=== PATIENT | male | born 1955 | race Caucasian/White ===

== ENCOUNTER → 2017-03-02 | Outpatient (CLI) | payer BC ==
[~2017-03-02] MED LIST: ASPI81TA28 PO; ATOR-24 PO; CHOL1000 PO; CHOL2000 PO; INSPMPNVLG; INSPMPRG; LISI-461 PO
[2017-03-03 06:21] LABS: ESTIMATED AVERAGE GLUCOSE 206 mg/dl; HA1C FLAG Normal (Normal)
== END | disposition home or self-care (01) ==
LOC: C.LAB1850 14:14
PROVIDERS: ATTEND Internal Medicine Endocrinology, Diabetes & Metabolism
DX: E10.649 Type 1 diabetes mellitus with hypoglycemia without coma (principal)

== ENCOUNTER 2022-11-16 14:57 | Inpatient (IN) ==
[2022-11-16] MEDS ORDERED: ONDANSETRON INJ 2 MG/ML 2 ML VIAL IV STA (15:25)
[2022-11-16 16:10] LABS: Hemoglobin 14.5 g/dl (14.0-18.0); Mean Corpuscular Volume 94.2 fL (80.0-100.0); Mean Platelet Volume 10.7 fL (9.4-12.4); Platelet Count 258 K/uL (130-400); RDW Coefficient of Variation 12.5 % (11.5-14.5); RDW Standard Deviation 43.3 fL (36.4-46.3); Red Blood Count 4.67 M/uL (4.70-6.10); White Blood Count 25.14 K/ul (4.8-10.8)
[2022-11-16] MEDS ORDERED: SODIUM CHLORIDE 0.9% 1000ML 1,000 ML IV ONE ×2 (16:34→16:49)
[2022-11-16] MEDS ORDERED: FAMOTIDINE 20 MG in SYRINGE 3 ML IV ONE (16:34)
[2022-11-16] MEDS ORDERED: NovoLIN-R INSULIN PER UNIT CHARGE IV STA (16:50)
[2022-11-16 16:59] LABS: Albumin Globulin Ratio 1.9 (0.9-2); Albumin Level 4.8 gm/dl (3.4-5.0); BUN Creatinine Ratio 24.5 (10-20); Bilirubin,Total 2.3 mg/dl (0.2-1.0); Calcium 10.2 mg/dl (8.5-10.1); Creatinine Clr Calc Pharmacy 52.6 ml/min; Est GFR (African American) 56.8 ml/min; Globulin 2.5 gm/dl (2.5-4.0); Total Protein 7.3 gm/dl (6.0-8.3)
[2022-11-16] MEDS ORDERED: SODIUM CHLORIDE 0.9% 1000ML 1,000 ML IV SCH (17:00)
--- NOTE | 2022-11-16 17:01 | Emergency Department Note ---
Impression & Plan Diabetic ketoacidosis ED Provider Note CHIEF COMPLAINT: High blood sugar HISTORY OF PRESENT ILLNESS: This 67-year-old male patient with history of insulin-dependent diabetes tension, hypercholesterolemia presents to the emergency department feeling ill. He states he woke up early this morning feeling flushed and "not quite right" he then checked his blood sugar which was over 400. He states no matter what he has done for the rest of the day with his insulin boluses, his blood sugar remains high. He began to have vomiting and diarrhea. Patient has tried crackers, soda fluids, but seems to bring everything up. He last vomited in the waiting room. He denies any fevers, severe headache or vision changes. He states his chest is tight but he believes it is from vomiting. REVIEW OF SYSTEMS: A review of systems was performed with positives and pertinent negatives listed in the history of present illness. 10 systems were reviewed and are otherwise negative. ALLERGIES: see below MEDICATIONS: see below PMH: see below SOCIAL HISTORY: see below DDx: Viral infection, UTI, DKA, dehydration, metabolic abnormality, hypo/hyperglycemia, electrolyte disturbance, anemia, hypoxia, cardiac sources, intracerebral event, toxicologic, neurologic, as well as other pathologies. PHYSICAL EXAM: Vital signs reviewed. General: Critically ill-appearing 67-year-old male, in some discomfort. Smells of ketones HEENT: No scleral icterus, PERRLA, neck supple. Dry mucous membranes Cardiovascular: Tachycardic but regular, no extra sounds Pulmonary: Clear to auscultation bilaterally, increased respiratory rate Abdomen: Soft, nontender, nondistended, positive bowel sounds. Musculoskeletal: Atraumatic, no peripheral edema. Neurologic: Patient awake alert and oriented x 3, speech is clear Skin: Warm, dry, no rash EMERGENCY DEPARTMENT COURSE/MDM: This patient was evaluated and appeared to be in no significant distress. IV access was obtained and laboratory work was drawn. External medical records were reviewed. The patient was hydrated with 2 L of normal saline solution. He was placed at 150 milliliters per hour thereafter. Laboratory work reveals a markedly elevated glucose at 452 with a WBC of 25. Patient appears to be in DKA with an anion gap of 24 and CO2 of 14. An insulin drip was ordered. Seems etiology of the patient's DKA is related to his insulin pump, he states the needle was not in his skin when he woke up. Patient will require hospitalization for stabilization. Case was discussed with the [facility] hospitalist, Dr. Burrell. He has agreed to accept the patient for further management. Patient is aware of the plan and agrees MONITORING: An order for cardiac monitoring was placed and the patient is noted to be in a sinus tachycardia at 124 beats per minute. EKG: To my interpretation reveals a sinus tachycardia at 106 bpm. Evidence of a previous septal infarct. QTc is 456. Normal ST segments. No PVC, no PAC DISPOSITION: Admission I have personally spent 60 minutes of critical care time in the direct management of this patient. This was a life/limb threatening event. This 60 minutes is in excess of all separately billable procedures. Past Med/Surg History Medical History Diabetic peripheral neuropathy associated with type 1 diabetes mellitus Hypoglycemia unawareness in type 1 diabetes mellitus Loss of protective sensation of skin of foot Surgical History H/O foot surgery Family History Family/Other Colorectal cancer Diabetes Grandfather (Maternal) Myocardial infarction Grandfather (Paternal) Myocardial infarction Grandmother (Paternal) Ovarian cancer Brother Prostate cancer Diabetes Uncle Diabetes Denies family history of Breast cancer Social History Smoking Status: Former smoker Smoking End Date: Nov 1990, smoked 15 years off & on; Second Hand Exposure: No; Hx Alcohol Use: Yes Alcohol type: beer and hard liquor Alcohol Intake Frequency: 2-3 x/Week Hx Substance Use: No Preferred Language: Hebrew Communication Ability: Effective Health Policy Analyst Required: No Beliefs That Will Affect Care: None marital status: Current Living Situation: Spouse current occupational status: employed 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 Other Information That Helps Us Care for You: No Feels Safe at Home: Yes Safety Concerns: Feels Safe At This Time Childhood Exposure to Second-Hand Smoke: No Dental Care, Regularly: Yes Physical Activity Frequency: 3-4 Times per Week Seatbelt Use: always Sunscreen Use: No Assistive Devices: Glasses Allergies Allergies Allergy/AdvReac Type Severity Reaction Status Date / Time No Known Allergies Allergy Mild Verified 11/16/22 17:48 Home Meds Home Medications Medication Instructions Recorded Confirmed aspirin 81 mg tablet,delayed 81 mg PO HS 07/24/19 11/16/22 release (Adult Low Dose Aspirin) insulin syringe-needle U-100 0.5 #10 ea 07/24/19 08/05/22 mL 31 gauge x 5/16" (BD Insulin Syringe Ultra-Fine) atorvastatin 80 mg tablet 80 mg PO HS 11/16/22 11/16/22 cholecalciferol (vitamin D3) 50 100 mcg PO HS 11/16/22 11/16/22 mcg (2,000 unit) capsule (Vitamin D3) ezetimibe 10 mg tablet 10 mg PO HS 11/16/22 11/16/22 insulin lispro 100 unit/mL 0 unit continuous subcutaneous 11/16/22 11/16/22 subcutaneous solution (Humalog infusion CONTINOUS U-100 Insulin) lisinopril 40 mg tablet 40 mg PO HS 11/16/22 11/16/22 Previous Rx's Medication Instructions Recorded Contour Next Test Strips (blood #600 ea 11/19/21 sugar diagnostic) blood-glucose meter,continuous #1 ea 08/29/22 Dexcom G6 Sensor (blood-glucose #9 ea 11/07/22 sensor) Dexcom G6 Transmitter #1 ea 11/07/22 (blood-glucose transmitter) glucagon (human recombinant) 1 mg 1 mg IM .COMPLEX PRN hypoglycemia 11/09/22 solution for injection #1 ea Results & Data (ED) Vital Signs Vital Signs - 24 hr 11/16/22 14:58 11/16/22 17:58 Temperature 36.8 C Temperature Source Temporal Artery Scan Pulse Rate 118 H Pulse Rate [Right Finger] 124 H Respiratory Rate 20 18 Respiratory Effort / Characteristics Non-Labored Spontaneous Non-Labored Spontaneous Respiratory Depth Normal Normal Blood Pressure 131/63 Blood Pressure [Right Arm] 140/64 Blood Pressure Mean 85 Blood Pressure Mean [Right Arm] 89 Pulse Oximetry 98 98 Oxygen Delivery Method Room Air Room Air Sepsis Recent Fever Within 48 Hours No Sepsis New/Unexplained Change in Mental Status No Sepsis Action Taken by Nursing No Action Required Home Medications Current Medication List: was personally reviewed by me Laboratory Data Attestation: I reviewed the patient's lab results. 11/16/22 15:35 11/16/22 15:35 Lab Results 11/16/22 11/16/22 11/16/22 Range/Units 15:33 15:35 15:35 WBC 25.14 H (4.8-10.8) K/ul RBC 4.67 L (4.70-6.10) M/uL Hgb 14.5 (14.0-18.0) g/dl Hct 44.0 (42.0-52.0) % MCV 94.2 (80.0-100.0) fL MCH 31.0 (25.0-34.0) pg MCHC 33.0 (32.0-36.0) g/dL RDW Std Deviation 43.3 (36.4-46.3) fL RDW Coeff of Rik 12.5 (11.5-14.5) % Plt Count 258 (130-400) K/uL MPV 10.7 (9.4-12.4) fL Immature Gran % (Auto) 0.8 % Neut % (Auto) 67.4 % Lymph % (Auto) 26.5 % [place] % (Auto) 4.9 % Eos % (Auto) 0.0 % Baso % (Auto) 0.4 % Neut # (Auto) 16.95 H (1.40-6.50) K/uL Lymph # (Auto) 6.66 H (1.2-3.4) K/uL [place] # (Auto) 1.22 H (0.11-0.59) K/uL Eos # (Auto) 0.01 (0-0.50) K/uL Baso # (Auto) 0.11 (0-0.2) K/uL Immature Gran # (Auto) 0.19 (0.01-0.20) K/uL ABG pH (7.35-7.45) ABG pCO2 (35-46) mmHg ABG pO2 (80-95) mmHg ABG HCO3 (19-24) mmol/L ABG O2 Saturation (90-95) % ABG Base Excess (-9-1.8) mEq/L Abdi Test (Pos) Oxygen Given Sodium 135 L (136-145) mmol/L Potassium 6.0 H (3.5-5.1) mmol/L Chloride 97 L (98-107) mmol/L Carbon Dioxide 14 L (21-32) mmol/L Anion Gap 24 H (3-11) BUN 36 H (6-23) mg/dl Creatinine 1.47 H (0.6-1.4) mg/dl Est Cr Clr Drug Dosing 52.6 ml/min Est GFR ( Amer) 56.8 ml/min Est GFR (Non-Af Amer) 49.0 ml/min BUN/Creatinine Ratio 24.5 H (10-20) Glucose 542 H* (70-99(Fasting)) mg/dl POC Glucose 448 H* (70-99) mg/dl Calcium 10.2 H (8.5-10.1) mg/dl Total Bilirubin 2.3 H (0.2-1.0) mg/dl AST 23 (13-39) U/L ALT 29 (7-52) U/L Alkaline Phosphatase 51 (34-104) U/L Troponin I High Sens 9.2 (0-20) pg/ml Total Protein 7.3 (6.0-8.3) gm/dl Albumin 4.8 (3.4-5.0) gm/dl Globulin 2.5 (2.5-4.0) gm/dl Albumin/Globulin Ratio 1.9 (0.9-2) Urine Color Urine Appearance (Clear) Urine pH (4.5-7.5) Ur Specific [place] (1.000-1.030) Urine Protein (Negative) Urine Glucose (UA) (Negative) Urine Ketones (Negative) Urine Blood (Negative) Urine Nitrite (Negative) Urine Bilirubin (Negative) Urine Urobilinogen (Negative) Ur Leukocyte Esterase (Negative) Stl C. cayetanensis PCR Stool Rotavirus A PCR Stl Adenov F 40/41 PCR Stool Astrovirus (PCR) Stool Campylobacter PCR Stl C. diff Tox B Gene Stool Cryptosporidium PCR Stl E.coli Shiga Tox PCR Stool E coli O157 PCR Stl Enterotoxigenic E PCR Stool EPEC (PCR) Stool EAEC (PCR) Stl E. histolytica PCR Stool Giardia Lamblia PCR Stool Salmonella PCR Stool Sapovirus (PCR) Stl P. shigelloides PCR Stl Shigella/EIEC PCR St Y.enterocolitica PCR Stool Vibrio (PCR) Stl Vibrio cholerae PCR Stl Norovirus GI/GII PCR SARS-CoV-2 (PCR) (Negative) Influenza Type A (PCR) (Neg) Influenza Type B (PCR) (Neg) RSV (RT-PCR) (Neg) 11/16/22 11/16/22 11/16/22 Range/Units 16:40 16:56 17:17 WBC (4.8-10.8) K/ul RBC (4.70-6.10) M/uL Hgb (14.0-18.0) g/dl Hct (42.0-52.0) % MCV (80.0-100.0) fL MCH (25.0-34.0) pg MCHC (32.0-36.0) g/dL RDW Std Deviation (36.4-46.3) fL RDW Coeff of Rik (11.5-14.5) % Plt Count (130-400) K/uL MPV (9.4-12.4) fL Immature Gran % (Auto) % Neut % (Auto) % Lymph % (Auto) % [place] % (Auto) % Eos % (Auto) % Baso % (Auto) % Neut # (Auto) (1.40-6.50) K/uL Lymph # (Auto) (1.2-3.4) K/uL [place] # (Auto) (0.11-0.59) K/uL Eos # (Auto) (0-0.50) K/uL Baso # (Auto) (0-0.2) K/uL Immature Gran # (Auto) (0.01-0.20) K/uL ABG pH (7.35-7.45) ABG pCO2 (35-46) mmHg ABG pO2 (80-95) mmHg ABG HCO3 (19-24) mmol/L ABG O2 Saturation (90-95) % ABG Base Excess (-9-1.8) mEq/L Abdi Test (Pos) Oxygen Given Sodium (136-145) mmol/L Potassium (3.5-5.1) mmol/L Chloride (98-107) mmol/L Carbon Dioxide (21-32) mmol/L Anion Gap (3-11) BUN (6-23) mg/dl Creatinine (0.6-1.4) mg/dl Est Cr Clr Drug Dosing ml/min Est GFR ( Amer) ml/min Est GFR (Non-Af Amer) ml/min BUN/Creatinine Ratio (10-20) Glucose (70-99(Fasting)) mg/dl POC Glucose 457 H* (70-99) mg/dl Calcium (8.5-10.1) mg/dl Total Bilirubin (0.2-1.0) mg/dl AST (13-39) U/L ALT (7-52) U/L Alkaline Phosphatase (34-104) U/L Troponin I High Sens (0-20) pg/ml Total Protein (6.0-8.3) gm/dl Albumin (3.4-5.0) gm/dl Globulin (2.5-4.0) gm/dl Albumin/Globulin Ratio (0.9-2) Urine Color Yellow Urine Appearance Clear (Clear) Urine pH 5.0 (4.5-7.5) Ur Specific [place] 1.023 (1.000-1.030) Urine Protein Negative (Negative) Urine Glucose (UA) 3+ H (Negative) Urine Ketones 3+ H (Negative) Urine Blood Negative (Negative) Urine Nitrite Negative (Negative) Urine Bilirubin Negative (Negative) Urine Urobilinogen Negative (Negative) Ur Leukocyte Esterase Negative (Negative) Stl C. cayetanensis PCR Stool Rotavirus A PCR Stl Adenov F 40/41 PCR Stool Astrovirus (PCR) Stool Campylobacter PCR Stl C. diff Tox B Gene Stool Cryptosporidium PCR Stl E.coli Shiga Tox PCR Stool E coli O157 PCR Stl Enterotoxigenic E PCR Stool EPEC (PCR) Stool EAEC (PCR) Stl E. histolytica PCR Stool Giardia Lamblia PCR Stool Salmonella PCR Stool Sapovirus (PCR) Stl P. shigelloides PCR Stl Shigella/EIEC PCR St Y.enterocolitica PCR Stool Vibrio (PCR) Stl Vibrio cholerae PCR Stl Norovirus GI/GII PCR SARS-CoV-2 (PCR) NEGATIVE (Negative) Influenza Type A (PCR) Negative (Neg) Influenza Type B (PCR) Negative (Neg) RSV (RT-PCR) Negative (Neg) 11/16/22 11/16/22 11/16/22 Range/Units 17:57 17:57 18:12 WBC (4.8-10.8) K/ul RBC (4.70-6.10) M/uL Hgb (14.0-18.0) g/dl Hct (42.0-52.0) % MCV (80.0-100.0) fL MCH (25.0-34.0) pg MCHC (32.0-36.0) g/dL RDW Std Deviation (36.4-46.3) fL RDW Coeff of Rik (11.5-14.5) % Plt Count (130-400) K/uL MPV (9.4-12.4) fL Immature Gran % (Auto) % Neut % (Auto) % Lymph % (Auto) % [place] % (Auto) % Eos % (Auto) % Baso % (Auto) % Neut # (Auto) (1.40-6.50) K/uL Lymph # (Auto) (1.2-3.4) K/uL [place] # (Auto) (0.11-0.59) K/uL Eos # (Auto) (0-0.50) K/uL Baso # (Auto) (0-0.2) K/uL Immature Gran # (Auto) (0.01-0.20) K/uL ABG pH 7.14 L* (7.35-7.45) ABG pCO2 38 (35-46) mmHg ABG pO2 34 L (80-95) mmHg ABG HCO3 13 L (19-24) mmol/L ABG O2 Saturation < 60.0 L (90-95) % ABG Base Excess -15.3 L (-9-1.8) mEq/L Abdi Test Pos (Pos) Oxygen Given ROOM AIR Sodium (136-145) mmol/L Potassium (3.5-5.1) mmol/L Chloride (98-107) mmol/L Carbon Dioxide (21-32) mmol/L Anion Gap (3-11) BUN (6-23) mg/dl Creatinine (0.6-1.4) mg/dl Est Cr Clr Drug Dosing ml/min Est GFR ( Amer) ml/min Est GFR (Non-Af Amer) ml/min BUN/Creatinine Ratio (10-20) Glucose (70-99(Fasting)) mg/dl POC Glucose (70-99) mg/dl Calcium (8.5-10.1) mg/dl Total Bilirubin (0.2-1.0) mg/dl AST (13-39) U/L ALT (7-52) U/L Alkaline Phosphatase (34-104) U/L Troponin I High Sens (0-20) pg/ml Total Protein (6.0-8.3) gm/dl Albumin (3.4-5.0) gm/dl Globulin (2.5-4.0) gm/dl Albumin/Globulin Ratio (0.9-2) Urine Color Urine Appearance (Clear) Urine pH (4.5-7.5) Ur Specific [place] (1.000-1.030) Urine Protein (Negative) Urine Glucose (UA) (Negative) Urine Ketones (Negative) Urine Blood (Negative) Urine Nitrite (Negative) Urine Bilirubin (Negative) Urine Urobilinogen (Negative) Ur Leukocyte Esterase (Negative) Stl C. cayetanensis PCR Cancelled Stool Rotavirus A PCR Cancelled Stl Adenov F 40/41 PCR Cancelled Stool Astrovirus (PCR) Cancelled Stool Campylobacter PCR Cancelled Stl C. diff Tox B Gene Cancelled Stool Cryptosporidium PCR Cancelled Stl E.coli Shiga Tox PCR Cancelled Stool E coli O157 PCR Cancelled Stl Enterotoxigenic E PCR Cancelled Stool EPEC (PCR) Cancelled Stool EAEC (PCR) Cancelled Stl E. histolytica PCR Cancelled Stool Giardia Lamblia PCR Cancelled Stool Salmonella PCR Cancelled Stool Sapovirus (PCR) Cancelled Stl P. shigelloides PCR Cancelled Stl Shigella/EIEC PCR Cancelled St Y.enterocolitica PCR Cancelled Stool Vibrio (PCR) Cancelled Stl Vibrio cholerae PCR Cancelled Stl Norovirus GI/GII PCR Cancelled SARS-CoV-2 (PCR) (Negative) Influenza Type A (PCR) (Neg) Influenza Type B (PCR) (Neg) RSV (RT-PCR) (Neg) 11/16/22 Range/Units 18:46 WBC (4.8-10.8) K/ul RBC (4.70-6.10) M/uL Hgb (14.0-18.0) g/dl Hct (42.0-52.0) % MCV (80.0-100.0) fL MCH (25.0-34.0) pg MCHC (32.0-36.0) g/dL RDW Std Deviation (36.4-46.3) fL RDW Coeff of Rik (11.5-14.5) % Plt Count (130-400) K/uL MPV (9.4-12.4) fL Immature Gran % (Auto) % Neut % (Auto) % Lymph % (Auto) % [place] % (Auto) % Eos % (Auto) % Baso % (Auto) % Neut # (Auto) (1.40-6.50) K/uL Lymph # (Auto) (1.2-3.4) K/uL [place] # (Auto) (0.11-0.59) K/uL Eos # (Auto) (0-0.50) K/uL Baso # (Auto) (0-0.2) K/uL Immature Gran # (Auto) (0.01-0.20) K/uL ABG pH (7.35-7.45) ABG pCO2 (35-46) mmHg ABG pO2 (80-95) mmHg ABG HCO3 (19-24) mmol/L ABG O2 Saturation (90-95) % ABG Base Excess (-9-1.8) mEq/L Abdi Test (Pos) Oxygen Given Sodium (136-145) mmol/L Potassium (3.5-5.1) mmol/L Chloride (98-107) mmol/L Carbon Dioxide (21-32) mmol/L Anion Gap (3-11) BUN (6-23) mg/dl Creatinine (0.6-1.4) mg/dl Est Cr Clr Drug Dosing ml/min Est GFR ( Amer) ml/min Est GFR (Non-Af Amer) ml/min BUN/Creatinine Ratio (10-20) Glucose (70-99(Fasting)) mg/dl POC Glucose 371 H* (70-99) mg/dl Calcium (8.5-10.1) mg/dl Total Bilirubin (0.2-1.0) mg/dl AST (13-39) U/L ALT (7-52) U/L Alkaline Phosphatase (34-104) U/L Troponin I High Sens (0-20) pg/ml Total Protein (6.0-8.3) gm/dl Albumin (3.4-5.0) gm/dl Globulin (2.5-4.0) gm/dl Albumin/Globulin Ratio (0.9-2) Urine Color Urine Appearance (Clear) Urine pH (4.5-7.5) Ur Specific [place] (1.000-1.030) Urine Protein (Negative) Urine Glucose (UA) (Negative) Urine Ketones (Negative) Urine Blood (Negative) Urine Nitrite (Negative) Urine Bilirubin (Negative) Urine Urobilinogen (Negative) Ur Leukocyte Esterase (Negative) Stl C. cayetanensis PCR Stool Rotavirus A PCR Stl Adenov F 40/41 PCR Stool Astrovirus (PCR) Stool Campylobacter PCR Stl C. diff Tox B Gene Stool Cryptosporidium PCR Stl E.coli Shiga Tox PCR Stool E coli O157 PCR Stl Enterotoxigenic E PCR Stool EPEC (PCR) Stool EAEC (PCR) Stl E. histolytica PCR Stool Giardia Lamblia PCR Stool Salmonella PCR Stool Sapovirus (PCR) Stl P. shigelloides PCR Stl Shigella/EIEC PCR St Y.enterocolitica PCR Stool Vibrio (PCR) Stl Vibrio cholerae PCR Stl Norovirus GI/GII PCR SARS-CoV-2 (PCR) (Negative) Influenza Type A (PCR) (Neg) Influenza Type B (PCR) (Neg) RSV (RT-PCR) (Neg) Administered Medications Insulin Human Regular 250 (units/ Sodium Chloride) 250 mls @ 8.5 mls/hr IV .Q24H [facility]; Protocol Stop: 12/16/22 17:14 Last Titration: 11/16/22 23:00 Dose: 6.8 units/hr, 6.8 mls/hr Documented By: POLINA Co-signed By: [facility] Titration: 11/16/22 21:04 Dose: 8.5 units/hr, 8.5 mls/hr Documented By: MARK Co-signed By: [facility] Titration: 11/16/22 18:58 Dose: 8.5 units/hr, 8.5 mls/hr Documented By: KACI Co-signed By: [facility] Admin: 11/16/22 17:42 Dose: 8.5 units/hr, 8.5 mls/hr Documented By: KO Co-signed By: KACI Potassium Chloride/Sodium Chloride (1/2 Nss + 20meq Kcl 1000ml) 20 meq in 1,000 mls @ 150 mls/hr IV .Q6H40M [facility] Stop: 12/16/22 22:29 Last Admin: 11/16/22 22:55 Dose: 150 mls/hr Documented By: POLINA Discontinued Medications Famotidine 20 mg/ Syringe 5 mls @ 2.5 mls/min IV NOW ONE Stop: 11/16/22 16:35 Last Admin: 11/16/22 17:26 Dose: 2.5 mls/min Documented By: KO Sodium Chloride (Nss 1000ml) 1,000 mls @ 999 mls/hr IV .Q1H1M ONE Stop: 11/16/22 17:34 Last Infusion: 11/16/22 18:07 Dose: 0 mls/hr Documented By: Admin: 11/16/22 16:50 Dose: 999 mls/hr Documented By: KO Sodium Chloride (Nss 1000ml) 1,000 mls @ 999 mls/hr IV .Q1H1M ONE Stop: 11/16/22 17:49 Last Infusion: 11/16/22 20:12 Dose: 0 mls/hr Documented By: Admin: 11/16/22 17:32 Dose: 999 mls/hr Documented By: KO Sodium Chloride (Nss 1000ml) 1,000 mls @ 150 mls/hr IV .Q6H40M ARMINDA Stop: 12/16/22 16:59 Last Infusion: 11/16/22 22:50 Dose: 0 mls/hr Documented By: Admin: 11/16/22 19:39 Dose: 150 mls/hr Documented By: KO Insulin Aspart (Insulin Aspart Per Unit) 0 units SC ACHS ARMINDA Stop: 12/16/22 20:59 Last Admin: 11/16/22 22:10 Dose: Not Given Documented By: POLINA Insulin Human Regular (Novolin-R Insulin Per Unit Charge) 10 units IV NOW STA Stop: 11/16/22 16:51 Last Admin: 11/16/22 17:26 Dose: 10 units Documented By: KO Co-signed By: KACI Miscellaneous (Dka Goal Range 150-250 Mg/Dl) 1 each N/A ONE ONE Stop: 11/16/22 17:16 Last Admin: 11/16/22 17:53 Dose: Not Given Documented By: KO Ondansetron HCl (Ondansetron Inj 2 Mg/Ml 2 Ml Vial) 4 mg IV NOW STA Stop: 11/16/22 15:26 Last Admin: 11/16/22 15:41 Dose: 4 mg Documented By: AMANDAW Discharge Plan Visit Data Chief Complaint: Hyperglycemia Stated Complaint: REF BY DOC, VOMITING, HIGH BLOOD SUGAR ED Provider: Jessy Keenan Discharge Problem: Diabetic ketoacidosis Patient Disposition: Admitted As Inpatient Condition: Fair Discharge Instructions Interventions: ED Discharge Assessment Last Done: 11/16/22 22:07 : Diabetic ketoacidosis Qualifiers: Diabetes mellitus type: type 1 Diabetes mellitus complication detail: without coma Qualified Code(s): E10.10 - Type 1 diabetes mellitus with ketoacidosis without coma
[2022-11-16 17:06] LABS: Appearance Urine Clear (Clear); Bilirubin Urine Negative (Negative); Blood Urine Negative (Negative); Color Urine Yellow; Glucose Urine UA 3+ (Negative); Ketones Urine 3+ (Negative); Leukocyte Esterase Urine Negative (Negative); Nitrite Urine Negative (Negative); Protein Urine Negative (Negative); Specific Gravity Urine 1.023 (1.000-1.030); Urobilinogen Urine Negative (Negative)
[2022-11-16 17:10] LABS: Basophils # (auto) 0.11 K/uL (0-0.2); Basophils % (auto) 0.4 %; Eosinophils # (auto) 0.01 K/uL (0-0.50); Immature Granulocytes # (auto) 0.19 K/uL (0.01-0.20); Immature Granulocytes % (auto) 0.8 %; Lymphocytes # (auto) 6.66 K/uL (1.2-3.4); Lymphocytes % (auto) 26.5 %; Monocytes # (auto) 1.22 K/uL (0.11-0.59); Monocytes % (auto) 4.9 %; Neutrophils # (auto) 16.95 K/uL (1.40-6.50); Neutrophils % (auto) 67.4 %
[2022-11-16] MEDS ORDERED: GLUCAGON FOR INJ 1 MG VIAL SQ PRN (17:15)
[2022-11-16] MEDS ORDERED: DKA GOAL RANGE 150-250 mg/dl ONE ×2 (17:15→22:00)
[2022-11-16] MEDS ORDERED: INSULIN REGULAR 250 UNITS in SODIUM CHLORIDE 0.9% 247.5 ML IV SCH ×2 (17:15→22:00)
[2022-11-16] MEDS ORDERED: GLUCOSE 40% GEL 15 GM TUBE PO PRN (17:15)
[2022-11-16] MEDS ORDERED: GLUCOSE 10 TAB/TUBE PO PRN (17:15)
[2022-11-16] MEDS ORDERED: DEXTROSE 50% 50 ML SYRINGE IV PRN (17:15)
--- NOTE | 2022-11-16 17:44 | History & Physical Report ---
Date of Service November 16, 2022 Assessment & Plan (1) Diabetic ketoacidosis: Plan: Initial labs: Bicarb 14, anion gap 24, ABG pH 7.14 Suspected secondary to his insulin pump not initially working whenever he re- sites - consult athletic equipment manager for help with this DKA protocol IV fluids; normosol / Half NSS + 20 meq KCl / D5 half NSS + 20 meq KCl depending on K and BSG values DKA protocol IV insulin already started in the ER, aim 150-250. Consult pharmacy for help with glycemic control. q4h BMP, Mg, PO, venous pH Nausea and vomiting suspected due to DKA rather than cause of Famotidine for GI prophylaxis with nausea and vomiting (2) Diabetes type 1, controlled: Plan: HbA1c 9.6 in July. We will repeat with a.m. labs. Insulin as above (3) Chest pain: Plan: Suspect from nausea and vomiting Low suspicion of ACS Currently resolved Trend troponins but unless significant increase suspect demand-ischemia (4) Diarrhea: Plan: Stool PCR, C. diff pending. Can discontinue orders if diarrhea improves (5) Hypertension: Plan: Hold lisinopril pending serial blood pressure measurements Suspect this can be restarted tomorrow Plan VTE Prophylaxis - Lovenox 40mg SQ daily Diet - NPO pending anion gap closure Disposition - admit to PCU Admission and Anticipated Discharge Date Admission Date: November 16, 2022 History of Present Illness Chief Complaint: Nausea, vomiting, diarrhea Primary Care Provider: NO PCP Ilan Holden is a 67-year-old male with type 1 diabetes who presents to the ER with hyperglycemia in the 400s, chest pain, vomiting and generalized weakness. He reports never being admitted for diabetic ketoacidosis in 34 years and usually has more of a problem with lack of hypoglycemic awareness. He has had a new pump since March and reports having hyperglycemia whenever he changes sites. He was feeling mostly his normal self yesterday although a little bit more tired than usual. No infection signs or symptoms. During the night he was having trouble with high glucose levels and has been from experience that this may be due to a poor site of his insulin pump therefore changed this out to 2-3 times without improvement in his glucose. He does have injectable insulin although did not use on this occasion. He vomited green bile 10 times and had diarrhea 10 times following this. He denies any abdominal pain. He reports chest pain which he associates with the vomiting, no worse on palpation or exertion, not currently present. His usual basal rates of insulin is 1.05 units/h from 12 AM to 12 PM then 1.3 units/h from 12 PM to 12 AM (total 28.2 units). He reports usually requiring a total of 60 units insulin per day. In the ER he was noted to be in diabetic ketoacidosis with glucose level 542, bicarb 14, anion gap 24, ABG pH 7.14. He was given 2 L normal saline bolus, 10 units of IV insulin and started on an insulin drip. He was referred to medicine for admission ongoing management of diabetic ketoacidosis. Allergies Allergy/AdvReac Type Severity Reaction Status Date / Time No Known Allergies Allergy Mild Verified 11/16/22 17:48 Home Medications Medication Instructions Recorded Confirmed Type aspirin 81 mg tablet,delayed 81 mg PO HS 07/24/19 11/16/22 History release (Adult Low Dose Aspirin) insulin syringe-needle U-100 0.5 #10 ea 07/24/19 08/05/22 History mL 31 gauge x 5/16" (BD Insulin Syringe Ultra-Fine) Contour Next Test Strips (blood #600 ea 11/19/21 08/05/22 Rx sugar diagnostic) blood-glucose meter,continuous #1 ea 08/29/22 Rx Dexcom G6 Sensor (blood-glucose #9 ea 11/07/22 Rx sensor) Dexcom G6 Transmitter #1 ea 11/07/22 Rx (blood-glucose transmitter) glucagon (human recombinant) 1 mg 1 mg IM .COMPLEX PRN hypoglycemia 11/09/22 11/16/22 Rx solution for injection #1 ea atorvastatin 80 mg tablet 80 mg PO HS 11/16/22 11/16/22 History cholecalciferol (vitamin D3) 50 100 mcg PO HS 11/16/22 11/16/22 History mcg (2,000 unit) capsule (Vitamin D3) ezetimibe 10 mg tablet 10 mg PO HS 11/16/22 11/16/22 History insulin lispro 100 unit/mL 0 unit continuous subcutaneous 11/16/22 11/16/22 History subcutaneous solution (Humalog infusion CONTINOUS U-100 Insulin) lisinopril 40 mg tablet 40 mg PO HS 11/16/22 11/16/22 History Past Med/Surg History Medical History Diabetic peripheral neuropathy associated with type 1 diabetes mellitus Hypoglycemia unawareness in type 1 diabetes mellitus Loss of protective sensation of skin of foot Surgical History H/O foot surgery Family History Family/Other Colorectal cancer Diabetes Grandfather (Maternal) Myocardial infarction Grandfather (Paternal) Myocardial infarction Grandmother (Paternal) Ovarian cancer Brother Prostate cancer Diabetes Uncle Diabetes Denies family history of Breast cancer Social History Smoking Status: Former smoker Smoking End Date: Nov 1990, smoked 15 years off & on; Second Hand Exposure: No; Hx Alcohol Use: Yes Alcohol type: beer and hard liquor Alcohol Intake Frequency: 2-3 x/Week Hx Substance Use: No Preferred Language: Burmese Communication Ability: Effective Furniture Salesperson Required: No Beliefs That Will Affect Care: None marital status: Current Living Situation: Spouse current occupational status: employed 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 Other Information That Helps Us Care for You: No Feels Safe at Home: Yes Safety Concerns: Feels Safe At This Time Childhood Exposure to Second-Hand Smoke: No Dental Care, Regularly: Yes Physical Activity Frequency: 3-4 Times per Week Seatbelt Use: always Sunscreen Use: No Assistive Devices: Glasses Review of Systems Review of Systems: All systems reviewed & are unremarkable except as noted in HPI & below Physical Exam Constitutional: WD/WN, vitals as above Eyes: PERRL, conjunctivae normal, anicteric sclerae ENMT: Mouth: + dry oral mucous membranes Respiratory: normal respiratory effort, lungs clear to auscultation Cardiovascular: Rate/Rhythm: regular rhythm and + tachycardic Heart Sounds: no murmur Extremities: normal capillary refill; no calf tenderness and no pedal edema Gastrointestinal (Abdomen): normal bowel sounds, soft, nontender, no hepatosplenomegaly Musculoskeletal: no cyanosis or clubbing, extremities motor strength 5/5 Skin: no rashes, warm and dry Neurologic: moves all extremities and awake; not confused Psychiatric: A+Ox3, euthymic affect Results & Data Results & Data ([facility]) Vital Signs (Past 12 Hours) Vital Signs Temp Pulse Resp BP Pulse Ox O2 Del Method 11/16/22 14:58 36.8 C 118 H 20 131/63 98 Room Air Laboratory Results Abnormal lab results 11/16/22 11/16/22 11/16/22 Range/Units 15:33 15:35 15:35 WBC 25.14 H (4.8-10.8) K/ul RBC 4.67 L (4.70-6.10) M/uL Neut # (Auto) 16.95 H (1.40-6.50) K/uL Lymph # (Auto) 6.66 H (1.2-3.4) K/uL [place] # (Auto) 1.22 H (0.11-0.59) K/uL Sodium 135 L (136-145) mmol/L Potassium 6.0 H (3.5-5.1) mmol/L Chloride 97 L (98-107) mmol/L Carbon Dioxide 14 L (21-32) mmol/L Anion Gap 24 H (3-11) BUN 36 H (6-23) mg/dl Creatinine 1.47 H (0.6-1.4) mg/dl BUN/Creatinine Ratio 24.5 H (10-20) Glucose 542 H* (70-99(Fasting)) mg/dl POC Glucose 448 H* (70-99) mg/dl Calcium 10.2 H (8.5-10.1) mg/dl Total Bilirubin 2.3 H (0.2-1.0) mg/dl Urine Glucose (UA) (Negative) Urine Ketones (Negative) 11/16/22 11/16/22 Range/Units 16:40 17:17 WBC (4.8-10.8) K/ul RBC (4.70-6.10) M/uL Neut # (Auto) (1.40-6.50) K/uL Lymph # (Auto) (1.2-3.4) K/uL [place] # (Auto) (0.11-0.59) K/uL Sodium (136-145) mmol/L Potassium (3.5-5.1) mmol/L Chloride (98-107) mmol/L Carbon Dioxide (21-32) mmol/L Anion Gap (3-11) BUN (6-23) mg/dl Creatinine (0.6-1.4) mg/dl BUN/Creatinine Ratio (10-20) Glucose (70-99(Fasting)) mg/dl POC Glucose 457 H* (70-99) mg/dl Calcium (8.5-10.1) mg/dl Total Bilirubin (0.2-1.0) mg/dl Urine Glucose (UA) 3+ H (Negative) Urine Ketones 3+ H (Negative) Medications Administered ER medications given: Normal saline 1 L bolus x2 Ondansetron 4 mg IV Famotidine 20 mg IV Insulin 10 units IV ECG Indication: chest pain Rate (beats per minute): 106 Rhythm: sinus tachycardia Findings: no acute ischemic change Comparison ECG Date: from (August 14, 2017) Change: no significant change Code Status & VTE Plan Code Status Full VTE Prophylaxis Plan VTE Prophylaxis will be ordered: Yes Critical Care Time Critical Care Time: Yes Total Critical Care Time: 40 PG Care Time/CCT Total # of Minutes Spent Total Time Spent with Patient: Total time spent is greater than 50% in coordination of care (as documented) at patient's floor/unit and/or counseling patient: Critical Care Time: Yes Total Critical Care Time: 40 Coding Level of Care Code 69332 INT INP/OBS CARE 3/75MIN Diagnoses Diabetic ketoacidosis E11.10 Diabetes type 1, controlled E10.9 Chest pain R07.9 Diarrhea R19.7 Hypertension I10 Additional Codes Critical Care Time - Critical Care Time: Yes ([id number])
[2022-11-16 17:47] LABS: Influenza A virus by PCR Negative (Neg); Influenza B virus by PCR Negative (Neg); RSV by PCR Negative (Neg); SARS CoV2 RNA(COVID-19) Ceph NEGATIVE (Negative)
[2022-11-16 18:34] LABS: Base Excess ABG -15.3 mEq/L (-9-1.8); HCO3 ABG 13 mmol/L (19-24); Oxygen Saturation ABG < 60.0 % (90-95); PCO2 ABG 38 mmHg (35-46); PO2 ABG 34 mmHg (80-95)
[2022-11-16 18:44] LABS: Allen Test Pos (Pos)
[2022-11-16 19:27] LABS: pH ABG 7.14 (7.35-7.45)
[2022-11-16 20:25] LABS: Troponin I High Sensitivity 9.2 pg/ml (0-20)
[2022-11-16] MEDS ORDERED: INSULIN ASPART PER UNIT SC SCH (21:00)
[2022-11-16 21:28] LABS: BUN Creatinine Ratio 28.4 (10-20); Calcium 8.1 mg/dl (8.5-10.1); Creatinine Clr Calc Pharmacy 66.7 ml/min; Est GFR (African American) 75.6 ml/min; Est GFR (Non-African American) 65.3 ml/min; Potassium 4.3 mmol/L (3.5-5.1); Troponin I High Sensitivity 45.4 pg/ml (0-20)
[2022-11-16] MEDS ORDERED: PENDING 1/2NSS+20mEq KCL IVF SCH (22:00)
[2022-11-16] MEDS ORDERED: NORMOSOL-R 1,000 ML IV SCH (22:00)
[2022-11-16] MEDS ORDERED: STAT IV Infusion **Titration per Protocol STA (22:00)
[2022-11-16] MEDS ORDERED: PHARMACY GLYCEMIC MGMT CONSULT PRN (22:00)
[2022-11-16] MEDS ORDERED: SODIUM CHLOR 0.45% + 20MEQ KCL 20 MEQ/1,000 ML BAG IV SCH (22:30)
[2022-11-17] MEDS ORDERED: PENDING D5 1/2NS+20mEq KCL IVF SCH
[2022-11-17 00:23] LABS: BUN Creatinine Ratio 24.6 (10-20); Calcium 8.3 mg/dl (8.5-10.1); Creatinine Clr Calc Pharmacy 61.4 ml/min; Est GFR (African American) 68.4 ml/min; Potassium 4.1 mmol/L (3.5-5.1)
[2022-11-17 00:26] LABS: Magnesium 1.8 mg/dl (1.7-2.4); Phosphorus 1.2 mg/dl (2.5-4.9)
[2022-11-17] MEDS: ASPIRIN 81 MG ECTAB PO SCH ×2 (00:31→19:55)
[2022-11-17] MEDS: ATORVASTATIN 40 MG TAB PO SCH ×2 (00:31→19:56)
[2022-11-17] MEDS: EZETIMIBE 10 MG TABLET PO SCH ×2 (00:32→19:56)
[2022-11-17] MEDS: D5W AND 1/2NSS + 20MEQ KCL 20 MEQ/1,000 ML BAG IV SCH ×2 (01:39→08:52)
[2022-11-17 03:45] LABS: BUN Creatinine Ratio 24.8 (10-20); Calcium 8.1 mg/dl (8.5-10.1); Creatinine Clr Calc Pharmacy 66.1 ml/min; Est GFR (African American) 74.9 ml/min; Est GFR (Non-African American) 64.6 ml/min; Magnesium 1.8 mg/dl (1.7-2.4); Phosphorus 1.6 mg/dl (2.5-4.9); Potassium 4.1 mmol/L (3.5-5.1)
[2022-11-17 04:01] LABS: Troponin I High Sensitivity 947.6 pg/ml (0-20)
--- NOTE | 2022-11-17 07:26 | XRay Report ---
XR chest 1V portable CLINICAL HISTORY: DKA, ?pneumonia COMPARISON STUDY: No previous studies for comparison. FINDINGS: Lung volumes are mildly diminished. There is no pneumothorax or pleural effusion. Cardiac s ize is normal. Mediastinal contours are normal. There are mild opacities and reticulonodular intersti tial thickening, greater within the left lung and right lung base. IMPRESSION: Reticulonodular interstitial thickening with possible alveolar opacities. No lobar consol idation. Findings are suspicious for pneumonia. Radiographic follow-up to ensure resolution is recomm ended. ACT 112: Negative or not required by law. Electronically signed by: Marin Vail M.D. 11/17/2022 7:25 AM
[2022-11-17 07:55] LABS: BUN Creatinine Ratio 24.8 (10-20); Calcium 8.1 mg/dl (8.5-10.1); Creatinine Clr Calc Pharmacy 68.5 ml/min; Est GFR (African American) 78.1 ml/min; Est GFR (Non-African American) 67.4 ml/min; Magnesium 1.8 mg/dl (1.7-2.4); Phosphorus 2.5 mg/dl (2.5-4.9); Potassium 4.7 mmol/L (3.5-5.1)
--- NOTE | 2022-11-17 07:57 | Progress Note ---
Date of Service November 17, 2022 Assessment & Plan (1) Diabetic ketoacidosis: Diabetes mellitus complication detail: without coma Diabetes mellitus type: type 1 Qualified Code(s): E10.10 - Type 1 diabetes mellitus with ketoacidosis without coma (2) Diabetes type 1, controlled: (3) Chest pain: (4) Leukocytosis: Plan DKA: Secondary to insulin pump malfunctions when moved from one location to another. * Glucose under 250 consistently since last night (127 most recent) * Anion gap 9 most recently * Goal to transition from insulin drip to subcutaneous insulin in collaboration with pharmacy team * Start carb count diet * Get pump set up to ultimate goal of home regimen * Speak w/ hospice educator Chest pain: Concerning because CA can precipitate DKA, but this is likely due to dehydration secondary to DKA in addition to vomiting. His pain is not associated with exertion, he has no shortness of breath, and chest pain is not present as of 9am. * No acute ECG changes. Repeat EKG, obtain echo. * Troponin levels were 45.4 at 10PM, 947.6 at 3AM, and 1367 at 7AM, probably due to widespread ischemia, but will continue monitoring. * Cardiology advised holding heparin drip at this time. Leukocytosis: Concerning because infection commonly precipitates DKA, but this is likely demargination due to DKA, rather than the cause of DKA. * WBC of 25 upon presentation to ED. * Currently afebrile. * Continue to monitor for fever and normalization of WBC levels Diabetes type 1:Continued difficulty maintaining glycemic control since , despite patient education and multiple changes to medication and device regimen, follows with Dr. Riley * Last HgA1c was 9.6 in July * Needs a plan to prevent similar pump malfunctions in the future. * Pharmacy consulted for help with glycemic control) Admission and Anticipated Discharge Date Admission Date: November 16, 2022 Supervising Physician Co-Signing Physician Notes Medical Student Supervision Note: I was personally present during medical student patient encounter and independently interviewed and examined the patient and verified the blackwell history and physical, reviewed labs and image studies, discussed the case with Rebecca Last and agree with the findings and care plan. 67y/o M with h/o type 1 DM here with DKA likely from underlying uncontrolled DM No chest pain, shortness of breath, abdominal pain, nausea o/e - No distress Heart - regular; lungs - CTA DKA - Anion gap closed. Insulin drip transitioned to SQ insulin. Electrolytes stable Elevated troponin with chest pain - Echo normal Stress test ordered per cardio. follow Subjective This patient is an otherwise healthy 67-year-old male with insulin-dependent T1DM who presented to the [facility] ED yesterday 11/16/2022 feeling ill. In addition to vomiting, diarrhea, and chest pain, he reported a blood sugar of over 400. His insulin pump was replaced 8 months ago and he experiences hyperglycemia every time he switches sites, but he has never been hospitalized for DKA. In the emergency department, he had normal vital signs, mild tachycardia at 118, glucose at 542, pH at 7.14, potassium at 6.0, anion gap at 24, and CO2 at 14. The WBC count was 25. His EKG was normal. There were no signs of peaking T waves, wide ME intervals, or abnormal P waves. DKA protocol was initiated, he was rehydrated and given an insulin drip. He was admitted for continued monitoring. 11/17/2022: He is feeling much better this morning, and does not report chest pain, nausea, vomiting, abdominal pain, diarrhea, lethargy, dyspnea, or weakness. He slept 'as well as can be expected' last night and is glad his glucose is normalizing. His brother suddenly this past September due to a heart attack, and so, considering his recent chest pain, he is concerned he may have heart problems like his brother did. He endorses a mild headache that is unchanged since he came to the ED initially. He has an appetite and would like something to eat as soon as possible. Review of Systems Review of Systems: All systems reviewed & are unremarkable except as noted in Subjective Physical Exam Constitutional: healthy appearing, well groomed, cooperative and comfortable; no acute distress Eyes: normal visual archuleta by confrontation, + anicteric sclerae, PERRL, normal accommodation, EOM intact bilaterally and reactive pupils ENMT: external ear and nose normal, oropharynx normal Neck: normal visual inspection and trachea midline Thyroid: no thyromegaly Respiratory: normal respiratory effort, able to speak in complete sentences and symmetric chest movement; no respiratory distress, no labored breathing, does not use accessory muscles, not tachypneic and no audible wheezes Auscultation: lungs clear to auscultation bilaterally; no crackles, no rales, no rhonchi and no wheezes Cardiovascular: Rate/Rhythm: regular rate and regular rhythm Heart Sounds: normal S1 and normal S2; no gallop, no murmur and no cardiac rub Skin: no rashes, warm and dry Psychiatric: Orientation: alert, oriented x 3 and cooperative Eye Contact: good eye contact Speech: normal rate/rhythm/volume of speech Affect: euthymic affect Thought Process: linear/logical thought process Lymphatic: no cervical lymphadenopathy Results & Data ([facility]) Vital Signs (Past 12 Hours) Vital Signs Temp Pulse Pulse Resp BP Pulse Ox O2 Del Method 11/17/22 07:22 36.6 C 72 19 111/62 98 Room Air 11/16/22 23:00 Room Air 11/16/22 22:29 98 H 11/17/22 01:58 36.6 C 79 18 118/65 100 Room Air 11/16/22 22:00 36.7 C 102 H 20 122/64 98 Room Air 11/16/22 22:00 36.7 C 102 H 20 122/64 98 Room Air 11/16/22 21:36 100 H 18 119/51 L 98 Room Air Laboratory Results 11/17/22 11/17/22 11/17/22 11:52 11:52 11:43 Immature Gran % (Auto) Neut % (Auto) Lymph % (Auto) Dane % (Auto) Eos % (Auto) Baso % (Auto) Neut # (Auto) Lymph # (Auto) Dane # (Auto) Eos # (Auto) Baso # (Auto) Immature Gran # (Auto) Blood Smear Review ABG pH ABG pCO2 ABG pO2 ABG HCO3 ABG O2 Saturation ABG Base Excess Abdi Test VBG pH 7.34 L Oxygen Given Sodium 136 Potassium 4.9 Chloride 109 H Carbon Dioxide 20 L Anion Gap 7 BUN 28 H Creatinine 1.09 Est Cr Clr Drug Dosing 71.0 Est GFR ( Amer) 81.5 Est GFR (Non-Af Amer) 70.4 BUN/Creatinine Ratio 25.7 H Glucose 310 H* POC Glucose 231 H Calcium 8.0 L Phosphorus 2.2 L Magnesium 1.8 Total Bilirubin AST ALT Alkaline Phosphatase Troponin I High Sens Total Protein Albumin Globulin Albumin/Globulin Ratio Urine Color Urine Appearance Urine pH Ur Specific [place] Urine Protein Urine Glucose (UA) Urine Ketones Urine Blood Urine Nitrite Urine Bilirubin Urine Urobilinogen Ur Leukocyte Esterase Stl C. cayetanensis PCR Stool Rotavirus A PCR Stl Adenov F PCR Stool Astrovirus (PCR) Stool Campylobacter PCR Stl C. diff Tox B Gene Stool Cryptosporidium PCR Stl E.coli Shiga Tox PCR Stool E coli O157 PCR Stl Enterotoxigenic E PCR Stool EPEC (PCR) Stool EAEC (PCR) Stl E. histolytica PCR Stool Giardia Lamblia PCR Stool Salmonella PCR Stool Sapovirus (PCR) Stl P. shigelloides PCR Stl Shigella/EIEC PCR St Y.enterocolitica PCR Stool Vibrio (PCR) Stl Vibrio cholerae PCR Stl Norovirus GI/GII PCR SARS-CoV-2 (PCR) Influenza Type A (PCR) Influenza Type B (PCR) RSV (RT-PCR) 11/17/22 11/17/22 11/17/22 09:20 08:03 07:11 Immature Gran % (Auto) Neut % (Auto) Lymph % (Auto) Dane % (Auto) Eos % (Auto) Baso % (Auto) Neut # (Auto) Lymph # (Auto) Dane # (Auto) Eos # (Auto) Baso # (Auto) Immature Gran # (Auto) Blood Smear Review ABG pH ABG pCO2 ABG pO2 ABG HCO3 ABG O2 Saturation ABG Base Excess Abdi Test VBG pH Oxygen Given Sodium Potassium Chloride Carbon Dioxide Anion Gap BUN Creatinine Est Cr Clr Drug Dosing Est GFR ( Amer) Est GFR (Non-Af Amer) BUN/Creatinine Ratio Glucose POC Glucose 111 H 214 H Calcium Phosphorus Magnesium Total Bilirubin AST ALT Alkaline Phosphatase Troponin I High Sens 1367.9 H* D Total Protein Albumin Globulin Albumin/Globulin Ratio Urine Color Urine Appearance Urine pH Ur Specific [place] Urine Protein Urine Glucose (UA) Urine Ketones Urine Blood Urine Nitrite Urine Bilirubin Urine Urobilinogen Ur Leukocyte Esterase Stl C. cayetanensis PCR Stool Rotavirus A PCR Stl Adenov F PCR Stool Astrovirus (PCR) Stool Campylobacter PCR Stl C. diff Tox B Gene Stool Cryptosporidium PCR Stl E.coli Shiga Tox PCR Stool E coli O157 PCR Stl Enterotoxigenic E PCR Stool EPEC (PCR) Stool EAEC (PCR) Stl E. histolytica PCR Stool Giardia Lamblia PCR Stool Salmonella PCR Stool Sapovirus (PCR) Stl P. shigelloides PCR Stl Shigella/EIEC PCR St Y.enterocolitica PCR Stool Vibrio (PCR) Stl Vibrio cholerae PCR Stl Norovirus GI/GII PCR SARS-CoV-2 (PCR) Influenza Type A (PCR) Influenza Type B (PCR) RSV (RT-PCR) 11/17/22 11/17/22 11/17/22 07:11 07:11 06:54 Immature Gran % (Auto) Neut % (Auto) Lymph % (Auto) Dane % (Auto) Eos % (Auto) Baso % (Auto) Neut # (Auto) Lymph # (Auto) Dane # (Auto) Eos # (Auto) Baso # (Auto) Immature Gran # (Auto) Blood Smear Review ABG pH ABG pCO2 ABG pO2 ABG HCO3 ABG O2 Saturation ABG Base Excess Abdi Test VBG pH 7.38 Oxygen Given Sodium 142 Potassium 4.7 Chloride 113 H Carbon Dioxide 20 L Anion Gap 9 BUN 28 H Creatinine 1.13 Est Cr Clr Drug Dosing 68.5 Est GFR ( Amer) 78.1 Est GFR (Non-Af Amer) 67.4 BUN/Creatinine Ratio 24.8 H Glucose 127 H POC Glucose 102 H Calcium 8.1 L Phosphorus 2.5 Magnesium 1.8 Total Bilirubin AST ALT Alkaline Phosphatase Troponin I High Sens Total Protein Albumin Globulin Albumin/Globulin Ratio Urine Color Urine Appearance Urine pH Ur Specific [place] Urine Protein Urine Glucose (UA) Urine Ketones Urine Blood Urine Nitrite Urine Bilirubin Urine Urobilinogen Ur Leukocyte Esterase Stl C. cayetanensis PCR Stool Rotavirus A PCR Stl Adenov F 40/41 PCR Stool Astrovirus (PCR) Stool Campylobacter PCR Stl C. diff Tox B Gene Stool Cryptosporidium PCR Stl E.coli Shiga Tox PCR Stool E coli O157 PCR Stl Enterotoxigenic E PCR Stool EPEC (PCR) Stool EAEC (PCR) Stl E. histolytica PCR Stool Giardia Lamblia PCR Stool Salmonella PCR Stool Sapovirus (PCR) Stl P. shigelloides PCR Stl Shigella/EIEC PCR St Y.enterocolitica PCR Stool Vibrio (PCR) Stl Vibrio cholerae PCR Stl Norovirus GI/GII PCR SARS-CoV-2 (PCR) Influenza Type A (PCR) Influenza Type B (PCR) RSV (RT-PCR) 02/09/23 02/09/23 02/09/23 06:17 05:19 04:24 Immature Gran % (Auto) Neut % (Auto) Lymph % (Auto) Dane % (Auto) Eos % (Auto) Baso % (Auto) Neut # (Auto) Lymph # (Auto) Dane # (Auto) Eos # (Auto) Baso # (Auto) Immature Gran # (Auto) Blood Smear Review ABG pH ABG pCO2 ABG pO2 ABG HCO3 ABG O2 Saturation ABG Base Excess Abdi Test VBG pH Oxygen Given Sodium Potassium Chloride Carbon Dioxide Anion Gap BUN Creatinine Est Cr Clr Drug Dosing Est GFR ( Amer) Est GFR (Non-Af Amer) BUN/Creatinine Ratio Glucose POC Glucose 98 125 H 130 H Calcium Phosphorus Magnesium Total Bilirubin AST ALT Alkaline Phosphatase Troponin I High Sens Total Protein Albumin Globulin Albumin/Globulin Ratio Urine Color Urine Appearance Urine pH Ur Specific [place] Urine Protein Urine Glucose (UA) Urine Ketones Urine Blood Urine Nitrite Urine Bilirubin Urine Urobilinogen Ur Leukocyte Esterase Stl C. cayetanensis PCR Stool Rotavirus A PCR Stl Adenov F 40/41 PCR Stool Astrovirus (PCR) Stool Campylobacter PCR Stl C. diff Tox B Gene Stool Cryptosporidium PCR Stl E.coli Shiga Tox PCR Stool E coli O157 PCR Stl Enterotoxigenic E PCR Stool EPEC (PCR) Stool EAEC (PCR) Stl E. histolytica PCR Stool Giardia Lamblia PCR Stool Salmonella PCR Stool Sapovirus (PCR) Stl P. shigelloides PCR Stl Shigella/EIEC PCR St Y.enterocolitica PCR Stool Vibrio (PCR) Stl Vibrio cholerae PCR Stl Norovirus GI/GII PCR SARS-CoV-2 (PCR) Influenza Type A (PCR) Influenza Type B (PCR) RSV (RT-PCR) 11/17/22 11/17/22 11/17/22 03:12 03:12 03:10 Immature Gran % (Auto) Neut % (Auto) Lymph % (Auto) Dane % (Auto) Eos % (Auto) Baso % (Auto) Neut # (Auto) Lymph # (Auto) Dane # (Auto) Eos # (Auto) Baso # (Auto) Immature Gran # (Auto) Blood Smear Review ABG pH ABG pCO2 ABG pO2 ABG HCO3 ABG O2 Saturation ABG Base Excess Abdi Test VBG pH 7.37 Oxygen Given Sodium 138 Potassium 4.1 Chloride 111 H Carbon Dioxide 22 Anion Gap 5 BUN 29 H Creatinine 1.17 Est Cr Clr Drug Dosing 66.1 Est GFR ( Amer) 74.9 Est GFR (Non-Af Amer) 64.6 BUN/Creatinine Ratio 24.8 H Glucose 129 H POC Glucose 120 H Calcium 8.1 L Phosphorus 1.6 L Magnesium 1.8 Total Bilirubin AST ALT Alkaline Phosphatase Troponin I High Sens 947.6 H* D Total Protein Albumin Globulin Albumin/Globulin Ratio Urine Color Urine Appearance Urine pH Ur Specific [place] Urine Protein Urine Glucose (UA) Urine Ketones Urine Blood Urine Nitrite Urine Bilirubin Urine Urobilinogen Ur Leukocyte Esterase Stl C. cayetanensis PCR Stool Rotavirus A PCR Stl Adenov F 40/41 PCR Stool Astrovirus (PCR) Stool Campylobacter PCR Stl C. diff Tox B Gene Stool Cryptosporidium PCR Stl E.coli Shiga Tox PCR Stool E coli O157 PCR Stl Enterotoxigenic E PCR Stool EPEC (PCR) Stool EAEC (PCR) Stl E. histolytica PCR Stool Giardia Lamblia PCR Stool Salmonella PCR Stool Sapovirus (PCR) Stl P. shigelloides PCR Stl Shigella/EIEC PCR St Y.enterocolitica PCR Stool Vibrio (PCR) Stl Vibrio cholerae PCR Stl Norovirus GI/GII PCR SARS-CoV-2 (PCR) Influenza Type A (PCR) Influenza Type B (PCR) RSV (RT-PCR) 11/17/22 11/17/22 11/17/22 02:17 01:38 00:00 Immature Gran % (Auto) Neut % (Auto) Lymph % (Auto) Dane % (Auto) Eos % (Auto) Baso % (Auto) Neut # (Auto) Lymph # (Auto) Dane # (Auto) Eos # (Auto) Baso # (Auto) Immature Gran # (Auto) Blood Smear Review ABG pH ABG pCO2 ABG pO2 ABG HCO3 ABG O2 Saturation ABG Base Excess Abdi Test VBG pH Oxygen Given Sodium Potassium Chloride Carbon Dioxide Anion Gap BUN Creatinine Est Cr Clr Drug Dosing Est GFR ( Amer) Est GFR (Non-Af Amer) BUN/Creatinine Ratio Glucose POC Glucose 125 H 151 H 189 H Calcium Phosphorus Magnesium Total Bilirubin AST ALT Alkaline Phosphatase Troponin I High Sens Total Protein Albumin Globulin Albumin/Globulin Ratio Urine Color Urine Appearance Urine pH Ur Specific [place] Urine Protein Urine Glucose (UA) Urine Ketones Urine Blood Urine Nitrite Urine Bilirubin Urine Urobilinogen Ur Leukocyte Esterase Stl C. cayetanensis PCR Stool Rotavirus A PCR Stl Adenov F PCR Stool Astrovirus (PCR) Stool Campylobacter PCR Stl C. diff Tox B Gene Stool Cryptosporidium PCR Stl E.coli Shiga Tox PCR Stool E coli O157 PCR Stl Enterotoxigenic E PCR Stool EPEC (PCR) Stool EAEC (PCR) Stl E. histolytica PCR Stool Giardia Lamblia PCR Stool Salmonella PCR Stool Sapovirus (PCR) Stl P. shigelloides PCR Stl Shigella/EIEC PCR St Y.enterocolitica PCR Stool Vibrio (PCR) Stl Vibrio cholerae PCR Stl Norovirus GI/GII PCR SARS-CoV-2 (PCR) Influenza Type A (PCR) Influenza Type B (PCR) RSV (RT-PCR) 11/16/22 11/16/22 11/16/22 23:44 23:44 23:02 Immature Gran % (Auto) Neut % (Auto) Lymph % (Auto) Dane % (Auto) Eos % (Auto) Baso % (Auto) Neut # (Auto) Lymph # (Auto) Dane # (Auto) Eos # (Auto) Baso # (Auto) Immature Gran # (Auto) Blood Smear Review ABG pH ABG pCO2 ABG pO2 ABG HCO3 ABG O2 Saturation ABG Base Excess Abdi Test VBG pH 7.38 Oxygen Given Sodium 139 Potassium 4.1 Chloride 112 H Carbon Dioxide 22 Anion Gap 5 BUN 31 H Creatinine 1.26 Est Cr Clr Drug Dosing 61.4 Est GFR ( Amer) 68.4 Est GFR (Non-Af Amer) 59.0 BUN/Creatinine Ratio 24.6 H Glucose 197 H POC Glucose 197 H Calcium 8.3 L Phosphorus 1.2 L* Magnesium 1.8 Total Bilirubin AST ALT Alkaline Phosphatase Troponin I High Sens Total Protein Albumin Globulin Albumin/Globulin Ratio Urine Color Urine Appearance Urine pH Ur Specific [place] Urine Protein Urine Glucose (UA) Urine Ketones Urine Blood Urine Nitrite Urine Bilirubin Urine Urobilinogen Ur Leukocyte Esterase Stl C. cayetanensis PCR Stool Rotavirus A PCR Stl Adenov F PCR Stool Astrovirus (PCR) Stool Campylobacter PCR Stl C. diff Tox B Gene Stool Cryptosporidium PCR Stl E.coli Shiga Tox PCR Stool E coli O157 PCR Stl Enterotoxigenic E PCR Stool EPEC (PCR) Stool EAEC (PCR) Stl E. histolytica PCR Stool Giardia Lamblia PCR Stool Salmonella PCR Stool Sapovirus (PCR) Stl P. shigelloides PCR Stl Shigella/EIEC PCR St Y.enterocolitica PCR Stool Vibrio (PCR) Stl Vibrio cholerae PCR Stl Norovirus GI/GII PCR SARS-CoV-2 (PCR) Influenza Type A (PCR) Influenza Type B (PCR) RSV (RT-PCR) 11/16/22 11/16/22 11/16/22 21:57 21:02 20:48 Immature Gran % (Auto) Neut % (Auto) Lymph % (Auto) Dane % (Auto) Eos % (Auto) Baso % (Auto) Neut # (Auto) Lymph # (Auto) Dane # (Auto) Eos # (Auto) Baso # (Auto) Immature Gran # (Auto) Blood Smear Review ABG pH ABG pCO2 ABG pO2 ABG HCO3 ABG O2 Saturation ABG Base Excess Abdi Test VBG pH 7.37 Oxygen Given Sodium Potassium Chloride Carbon Dioxide Anion Gap BUN Creatinine Est Cr Clr Drug Dosing Est GFR ( Amer) Est GFR (Non-Af Amer) BUN/Creatinine Ratio Glucose POC Glucose 259 H 261 H Calcium Phosphorus Magnesium Total Bilirubin AST ALT Alkaline Phosphatase Troponin I High Sens Total Protein Albumin Globulin Albumin/Globulin Ratio Urine Color Urine Appearance Urine pH Ur Specific [place] Urine Protein Urine Glucose (UA) Urine Ketones Urine Blood Urine Nitrite Urine Bilirubin Urine Urobilinogen Ur Leukocyte Esterase Stl C. cayetanensis PCR Stool Rotavirus A PCR Stl Adenov F 40/41 PCR Stool Astrovirus (PCR) Stool Campylobacter PCR Stl C. diff Tox B Gene Stool Cryptosporidium PCR Stl E.coli Shiga Tox PCR Stool E coli O157 PCR Stl Enterotoxigenic E PCR Stool EPEC (PCR) Stool EAEC (PCR) Stl E. histolytica PCR Stool Giardia Lamblia PCR Stool Salmonella PCR Stool Sapovirus (PCR) Stl P. shigelloides PCR Stl Shigella/EIEC PCR St Y.enterocolitica PCR Stool Vibrio (PCR) Stl Vibrio cholerae PCR Stl Norovirus GI/GII PCR SARS-CoV-2 (PCR) Influenza Type A (PCR) Influenza Type B (PCR) RSV (RT-PCR) 11/16/22 11/16/22 11/16/22 20:48 20:01 18:46 Immature Gran % (Auto) Neut % (Auto) Lymph % (Auto) Dane % (Auto) Eos % (Auto) Baso % (Auto) Neut # (Auto) Lymph # (Auto) Dane # (Auto) Eos # (Auto) Baso # (Auto) Immature Gran # (Auto) Blood Smear Review ABG pH ABG pCO2 ABG pO2 ABG HCO3 ABG O2 Saturation ABG Base Excess Abdi Test VBG pH Oxygen Given Sodium 141 Potassium 4.3 D Chloride 113 H Carbon Dioxide 17 L Anion Gap 11 BUN 33 H Creatinine 1.16 D Est Cr Clr Drug Dosing 66.7 Est GFR ( Amer) 75.6 Est GFR (Non-Af Amer) 65.3 BUN/Creatinine Ratio 28.4 H Glucose 296 H POC Glucose 315 H* 371 H* Calcium 8.1 L D Phosphorus Magnesium Total Bilirubin AST ALT Alkaline Phosphatase Troponin I High Sens 45.4 H D Total Protein Albumin Globulin Albumin/Globulin Ratio Urine Color Urine Appearance Urine pH Ur Specific [place] Urine Protein Urine Glucose (UA) Urine Ketones Urine Blood Urine Nitrite Urine Bilirubin Urine Urobilinogen Ur Leukocyte Esterase Stl C. cayetanensis PCR Stool Rotavirus A PCR Stl Adenov F 40/41 PCR Stool Astrovirus (PCR) Stool Campylobacter PCR Stl C. diff Tox B Gene Stool Cryptosporidium PCR Stl E.coli Shiga Tox PCR Stool E coli O157 PCR Stl Enterotoxigenic E PCR Stool EPEC (PCR) Stool EAEC (PCR) Stl E. histolytica PCR Stool Giardia Lamblia PCR Stool Salmonella PCR Stool Sapovirus (PCR) Stl P. shigelloides PCR Stl Shigella/EIEC PCR St Y.enterocolitica PCR Stool Vibrio (PCR) Stl Vibrio cholerae PCR Stl Norovirus GI/GII PCR SARS-CoV-2 (PCR) Influenza Type A (PCR) Influenza Type B (PCR) RSV (RT-PCR) 11/16/22 11/16/22 11/16/22 18:12 17:57 17:57 Immature Gran % (Auto) Neut % (Auto) Lymph % (Auto) Dane % (Auto) Eos % (Auto) Baso % (Auto) Neut # (Auto) Lymph # (Auto) Dane # (Auto) Eos # (Auto) Baso # (Auto) Immature Gran # (Auto) Blood Smear Review ABG pH 7.14 L* ABG pCO2 38 ABG pO2 34 L ABG HCO3 13 L ABG O2 Saturation < 60.0 L ABG Base Excess -15.3 L Abdi Test Pos VBG pH Oxygen Given ROOM AIR Sodium Potassium Chloride Carbon Dioxide Anion Gap BUN Creatinine Est Cr Clr Drug Dosing Est GFR ( Amer) Est GFR (Non-Af Amer) BUN/Creatinine Ratio Glucose POC Glucose Calcium Phosphorus Magnesium Total Bilirubin AST ALT Alkaline Phosphatase Troponin I High Sens Total Protein Albumin Globulin Albumin/Globulin Ratio Urine Color Urine Appearance Urine pH Ur Specific [place] Urine Protein Urine Glucose (UA) Urine Ketones Urine Blood Urine Nitrite Urine Bilirubin Urine Urobilinogen Ur Leukocyte Esterase Stl C. cayetanensis PCR Cancelled Stool Rotavirus A PCR Cancelled Stl Adenov F 40/41 PCR Cancelled Stool Astrovirus (PCR) Cancelled Stool Campylobacter PCR Cancelled Stl C. diff Tox B Gene Cancelled Stool Cryptosporidium PCR Cancelled Stl E.coli Shiga Tox PCR Cancelled Stool E coli O157 PCR Cancelled Stl Enterotoxigenic E PCR Cancelled Stool EPEC (PCR) Cancelled Stool EAEC (PCR) Cancelled Stl E. histolytica PCR Cancelled Stool Giardia Lamblia PCR Cancelled Stool Salmonella PCR Cancelled Stool Sapovirus (PCR) Cancelled Stl P. shigelloides PCR Cancelled Stl Shigella/EIEC PCR Cancelled St Y.enterocolitica PCR Cancelled Stool Vibrio (PCR) Cancelled Stl Vibrio cholerae PCR Cancelled Stl Norovirus GI/GII PCR Cancelled SARS-CoV-2 (PCR) Influenza Type A (PCR) Influenza Type B (PCR) RSV (RT-PCR) 11/16/22 11/16/22 11/16/22 17:17 16:56 16:40 Immature Gran % (Auto) Neut % (Auto) Lymph % (Auto) Dane % (Auto) Eos % (Auto) Baso % (Auto) Neut # (Auto) Lymph # (Auto) Dane # (Auto) Eos # (Auto) Baso # (Auto) Immature Gran # (Auto) Blood Smear Review ABG pH ABG pCO2 ABG pO2 ABG HCO3 ABG O2 Saturation ABG Base Excess Abdi Test VBG pH Oxygen Given Sodium Potassium Chloride Carbon Dioxide Anion Gap BUN Creatinine Est Cr Clr Drug Dosing Est GFR ( Amer) Est GFR (Non-Af Amer) BUN/Creatinine Ratio Glucose POC Glucose 457 H* Calcium Phosphorus Magnesium Total Bilirubin AST ALT Alkaline Phosphatase Troponin I High Sens Total Protein Albumin Globulin Albumin/Globulin Ratio Urine Color Yellow Urine Appearance Clear Urine pH 5.0 Ur Specific [place] 1.023 Urine Protein Negative Urine Glucose (UA) 3+ H Urine Ketones 3+ H Urine Blood Negative Urine Nitrite Negative Urine Bilirubin Negative Urine Urobilinogen Negative Ur Leukocyte Esterase Negative Stl C. cayetanensis PCR Stool Rotavirus A PCR Stl Adenov F 40 PCR Stool Astrovirus (PCR) Stool Campylobacter PCR Stl C. diff Tox B Gene Stool Cryptosporidium PCR Stl E.coli Shiga Tox PCR Stool E coli O157 PCR Stl Enterotoxigenic E PCR Stool EPEC (PCR) Stool EAEC (PCR) Stl E. histolytica PCR Stool Giardia Lamblia PCR Stool Salmonella PCR Stool Sapovirus (PCR) Stl P. shigelloides PCR Stl Shigella/EIEC PCR St Y.enterocolitica PCR Stool Vibrio (PCR) Stl Vibrio cholerae PCR Stl Norovirus GI/GII PCR SARS-CoV-2 (PCR) NEGATIVE Influenza Type A (PCR) Negative Influenza Type B (PCR) Negative RSV (RT-PCR) Negative 11/16/22 11/16/22 15:35 15:35 Immature Gran % (Auto) 0.8 Neut % (Auto) 67.4 Lymph % (Auto) 26.5 Dane % (Auto) 4.9 Eos % (Auto) 0.0 Baso % (Auto) 0.4 Neut # (Auto) 16.95 H Lymph # (Auto) 6.66 H Dane # (Auto) 1.22 H Eos # (Auto) 0.01 Baso # (Auto) 0.11 Immature Gran # (Auto) 0.19 Blood Smear Review ABG pH ABG pCO2 ABG pO2 ABG HCO3 ABG O2 Saturation ABG Base Excess Abdi Test VBG pH Oxygen Given Sodium 135 L Potassium 6.0 H Chloride 97 L Carbon Dioxide 14 L Anion Gap 24 H BUN 36 H Creatinine 1.47 H Est Cr Clr Drug Dosing 52.6 Est GFR ( Amer) 56.8 Est GFR (Non-Af Amer) 49.0 BUN/Creatinine Ratio 24.5 H Glucose 542 H* POC Glucose Calcium 10.2 H Phosphorus Magnesium Total Bilirubin 2.3 H AST 23 ALT 29 Alkaline Phosphatase 51 Troponin I High Sens 9.2 Total Protein 7.3 Albumin 4.8 Globulin 2.5 Albumin/Globulin Ratio 1.9 Urine Color Urine Appearance Urine pH Ur Specific [place] Urine Protein Urine Glucose (UA) Urine Ketones Urine Blood Urine Nitrite Urine Bilirubin Urine Urobilinogen Ur Leukocyte Esterase Stl C. cayetanensis PCR Stool Rotavirus A PCR Stl Adenov F 40 PCR Stool Astrovirus (PCR) Stool Campylobacter PCR Stl C. diff Tox B Gene Stool Cryptosporidium PCR Stl E.coli Shiga Tox PCR Stool E coli O157 PCR Stl Enterotoxigenic E PCR Stool EPEC (PCR) Stool EAEC (PCR) Stl E. histolytica PCR Stool Giardia Lamblia PCR Stool Salmonella PCR Stool Sapovirus (PCR) Stl P. shigelloides PCR Stl Shigella/EIEC PCR St Y.enterocolitica PCR Stool Vibrio (PCR) Stl Vibrio cholerae PCR Stl Norovirus GI/GII PCR SARS-CoV-2 (PCR) Influenza Type A (PCR) Influenza Type B (PCR) RSV (RT-PCR) Diagnostic Findings Laboratory Results WBC 25.14 K/ul (4.8-10.8) H 11/16/22 15:35 RBC 4.67 M/uL (4.70-6.10) L 11/16/22 15:35 Hgb 14.5 g/dl (14.0-18.0) 11/16/22 15:35 Hct 44.0 % (42.0-52.0) 11/16/22 15:35 MCV 94.2 fL (80.0-100.0) 11/16/22 15:35 MCH 31.0 pg (25.0-34.0) 11/16/22 15:35 MCHC 33.0 g/dL (32.0-36.0) 11/16/22 15:35 RDW Std Deviation 43.3 fL (36.4-46.3) 11/16/22 15:35 RDW Coeff of Rik 12.5 % (11.5-14.5) 11/16/22 15:35 Plt Count 258 K/uL (130-400) 11/16/22 15:35 MPV 10.7 fL (9.4-12.4) 11/16/22 15:35 Immature Gran % (Auto) 0.8 % 11/16/22 15:35 Neut % (Auto) 67.4 % 11/16/22 15:35 Lymph % (Auto) 26.5 % 11/16/22 15:35 Dane % (Auto) 4.9 % 11/16/22 15:35 Eos % (Auto) 0.0 % 11/16/22 15:35 Baso % (Auto) 0.4 % 11/16/22 15:35 Neut # (Auto) 16.95 K/uL (1.40-6.50) H 11/16/22 15:35 Lymph # (Auto) 6.66 K/uL (1.2-3.4) H 11/16/22 15:35 Dane # (Auto) 1.22 K/uL (0.11-0.59) H 11/16/22 15:35 Eos # (Auto) 0.01 K/uL (0-0.50) 11/16/22 15:35 Baso # (Auto) 0.11 K/uL (0-0.2) 11/16/22 15:35 Immature Gran # (Auto) 0.19 K/uL (0.01-0.20) 11/16/22 15:35 Blood Smear Review 11/16/22 15:35 ABG pH 7.14 (7.35-7.45) L* 11/16/22 18:12 ABG pCO2 38 mmHg (35-46) 11/16/22 18:12 ABG pO2 34 mmHg (80-95) L 11/16/22 18:12 ABG HCO3 13 mmol/L (19-24) L 11/16/22 18:12 ABG O2 Saturation < 60.0 % (90-95) L 11/16/22 18:12 ABG Base Excess -15.3 mEq/L (-9-1.8) L 11/16/22 18:12 Abdi Test Pos (Pos) 11/16/22 18:12 VBG pH 7.34 (7.36-7.41) L 11/17/22 11:52 Oxygen Given ROOM AIR 11/16/22 18:12 Sodium 136 mmol/L (136-145) 11/17/22 11:52 Potassium 4.9 mmol/L (3.5-5.1) 11/17/22 11:52 Chloride 109 mmol/L (98-107) H 11/17/22 11:52 Carbon Dioxide 20 mmol/L (21-32) L 11/17/22 11:52 Anion Gap 7 (3-11) 11/17/22 11:52 BUN 28 mg/dl (6-23) H 11/17/22 11:52 Creatinine 1.09 mg/dl (0.6-1.4) 11/17/22 11:52 Est Cr Clr Drug Dosing 71.0 ml/min 11/17/22 11:52 Est GFR ( Amer) 81.5 ml/min 11/17/22 11:52 Est GFR (Non-Af Amer) 70.4 ml/min 11/17/22 11:52 BUN/Creatinine Ratio 25.7 (10-20) H 11/17/22 11:52 Glucose 310 mg/dl (70-99(Fasting)) H* 11/17/22 11:52 POC Glucose 231 mg/dl (70-99) H 11/17/22 11:43 Calcium 8.0 mg/dl (8.5-10.1) L 11/17/22 11:52 Phosphorus 2.2 mg/dl (2.5-4.9) L 11/17/22 11:52 Magnesium 1.8 mg/dl (1.7-2.4) 11/17/22 11:52 Total Bilirubin 2.3 mg/dl (0.2-1.0) H 11/16/22 15:35 AST 23 U/L (13-39) 11/16/22 15:35 ALT 29 U/L (7-52) 11/16/22 15:35 Alkaline Phosphatase 51 U/L (34-104) 11/16/22 15:35 Troponin I High Sens 1367.9 pg/ml (0-20) H* D 11/17/22 07:11 Total Protein 7.3 gm/dl (6.0-8.3) 11/16/22 15:35 Albumin 4.8 gm/dl (3.4-5.0) 11/16/22 15:35 Globulin 2.5 gm/dl (2.5-4.0) 11/16/22 15:35 Albumin/Globulin Ratio 1.9 (0.9-2) 11/16/22 15:35 Urine Color Yellow 11/16/22 16:40 Urine Appearance Clear (Clear) 11/16/22 16:40 Urine pH 5.0 (4.5-7.5) 11/16/22 16:40 Ur Specific Wilmore 1.023 (1.000-1.030) 11/16/22 16:40 Urine Protein Negative (Negative) 11/16/22 16:40 Urine Glucose (UA) 3+ (Negative) H 11/16/22 16:40 Urine Ketones 3+ (Negative) H 11/16/22 16:40 Urine Blood Negative (Negative) 11/16/22 16:40 Urine Nitrite Negative (Negative) 11/16/22 16:40 Urine Bilirubin Negative (Negative) 11/16/22 16:40 Urine Urobilinogen Negative (Negative) 11/16/22 16:40 Ur Leukocyte Esterase Negative (Negative) 11/16/22 16:40 Stl C. cayetanensis PCR Cancelled 11/16/22 17:57 Stool Rotavirus A PCR Cancelled 11/16/22 17:57 Stl Adenov F 40/41 PCR Cancelled 11/16/22 17:57 Stool Astrovirus (PCR) Cancelled 11/16/22 17:57 Stool Campylobacter PCR Cancelled 11/16/22 17:57 Stl C. diff Tox B Gene Cancelled 11/16/22 17:57 Stool Cryptosporidium PCR Cancelled 11/16/22 17:57 Stl E.coli Shiga Tox PCR Cancelled 11/16/22 17:57 Stool E coli O157 PCR Cancelled 11/16/22 17:57 Stl Enterotoxigenic E PCR Cancelled 11/16/22 17:57 Stool EPEC (PCR) Cancelled 11/16/22 17:57 Stool EAEC (PCR) Cancelled 11/16/22 17:57 Stl E. histolytica PCR Cancelled 11/16/22 17:57 Stool Giardia Lamblia PCR Cancelled 11/16/22 17:57 Stool Salmonella PCR Cancelled 11/16/22 17:57 Stool Sapovirus (PCR) Cancelled 11/16/22 17:57 Stl P. shigelloides PCR Cancelled 11/16/22 17:57 Stl Shigella/EIEC PCR Cancelled 11/16/22 17:57 St Y.enterocolitica PCR Cancelled 11/16/22 17:57 Stool Vibrio (PCR) Cancelled 11/16/22 17:57 Stl Vibrio cholerae PCR Cancelled 11/16/22 17:57 Stl Norovirus GI/GII PCR Cancelled 11/16/22 17:57 SARS-CoV-2 (PCR) NEGATIVE (Negative) 11/16/22 16:56 Influenza Type A (PCR) Negative (Neg) 11/16/22 16:56 Influenza Type B (PCR) Negative (Neg) 11/16/22 16:56 RSV (RT-PCR) Negative (Neg) 11/16/22 16:56 Impressions Chest X-Ray 11/17/22 00:31 XR chest 1V portable CLINICAL HISTORY: DKA, ?pneumonia COMPARISON STUDY: No previous studies for comparison. FINDINGS: Lung volumes are mildly diminished. There is no pneumothorax or pleural effusion. Cardiac size is normal. Mediastinal contours are normal. There are mild opacities and reticulonodular interstitial thickening, greater within the left lung and right lung base. IMPRESSION: Reticulonodular interstitial thickening with possible alveolar opacities. No lobar consolidation. Findings are suspicious for pneumonia. Radiographic follow-up to ensure resolution is recommended. ACT 112: Negative or not required by law. Electronically signed by: Marin Vail M.D. 11/17/2022 7:25 AM Medications Administered Aspirin (Aspirin 81 Mg Ectab) 81 mg PO HS ARMINDA Stop: 12/16/22 21:59 Last Admin: 11/17/22 00:31 Dose: Not Given Documented By: POLINA Atorvastatin Calcium (Atorvastatin 40 Mg Tab) 80 mg PO HS ARMINDA Stop: 12/16/22 21:59 Last Admin: 11/17/22 00:31 Dose: Not Given Documented By: POLINA Ezetimibe (Ezetimibe 10 Mg Tablet) 10 mg PO HS ARMINDA Stop: 12/16/22 21:59 Last Admin: 11/17/22 00:32 Dose: Not Given Documented By: POLINA Enoxaparin Sodium (Enoxaparin Inj 40 Mg/0.4 Ml Syr) 40 mg SQ QAM ARMINDA Stop: 12/17/22 08:59 Last Admin: 11/17/22 09:48 Dose: 40 mg Documented By: APARNA Famotidine 20 mg/ Syringe 5 mls @ 2.5 mls/min IV QAM ARMINDA Stop: 12/17/22 08:59 Last Admin: 11/17/22 09:50 Dose: 2.5 mls/min Documented By: APARNA Potassium Chloride/Sodium Chloride (1/2 Nss + 20meq Kcl 1000ml) 20 meq in 1,000 mls @ 120 mls/hr IV .Q8H20M [facility]; Protocol Stop: 12/17/22 09:29 Last Infusion: 11/17/22 15:47 Dose: 120 mls/hr Documented By: Infusion: 11/17/22 15:11 Dose: 0 mls/hr Documented By: Admin: 11/17/22 09:46 Dose: 120 mls/hr Documented By: APARNA Insulin Aspart (Insulin Aspart Per Unit) 0 units SC [facility] Stop: 12/17/22 07:29 Last Admin: 11/17/22 12:57 Dose: 14 units Documented By: APARNA Co-signed By: SOPHIA Admin: 11/17/22 09:43 Dose: Not Given Documented By: APARNA
--- NOTE | 2022-11-17 08:31 | Electrocardiogram Report ---
Test Reason : Blood Pressure : / mmHG Vent. Rate : 106 BPM Atrial Rate : 106 BPM P-R Int : 154 ms QRS Dur : 084 ms QT Int : 344 ms P-R-T Axes : 075 075 061 degrees QTc Int : 456 ms Sinus tachycardia Nondiagnostic inferior Q waves Borderline ECG When compared with ECG of 14-AUG-2017 04:00, HR has increased by 23 bpm Otherwise no significant change Confirmed by Rc Devi ([id number]) on 11/17/2022 8:30:30 AM Referred By: Confirmed By:Rc Devi
[2022-11-17] MEDS ORDERED: LANTUS PER UNIT CHARGE SQ SCH (09:00)
[2022-11-17] MEDS: INSULIN ASPART PER UNIT SC SCH ×4 (09:43→19:56)
[2022-11-17] MEDS: SODIUM CHLOR 0.45% + 20MEQ KCL 20 MEQ/1,000 ML BAG IV SCH ×2 (09:46→18:38)
[2022-11-17] MEDS: ENOXAPARIN INJ 40 MG/0.4 ML SYR SQ SCH (09:48)
[2022-11-17] MEDS: FAMOTIDINE 20 MG in SYRINGE 3 ML IV SCH (09:50)
--- NOTE | 2022-11-17 11:10 | Pharmacy Report ---
Pharmacy Glycemic Short Note 2 - Date of Service November 17, 2022 - Glycemic Short BSG Results (Last 24 hours): 11/16/22 11/16/22 11/16/22 15:33 15:35 17:17 Glucose 542 H* POC Glucose 448 H* 457 H* 11/16/22 11/16/22 11/16/22 18:46 20:01 20:48 Glucose 296 H POC Glucose 371 H* 315 H* 11/16/22 11/16/22 11/16/22 21:02 21:57 23:02 Glucose POC Glucose 261 H 259 H 197 H 11/16/22 11/17/22 11/17/22 23:44 00:00 01:38 Glucose 197 H POC Glucose 189 H 151 H 11/17/22 11/17/22 11/17/22 02:17 03:10 03:12 Glucose 129 H POC Glucose 125 H 120 H 11/17/22 11/17/22 11/17/22 04:24 05:19 06:17 Glucose POC Glucose 130 H 125 H 98 11/17/22 11/17/22 11/17/22 06:54 07:11 08:03 Glucose 127 H POC Glucose 102 H 214 H 11/17/22 09:20 Glucose POC Glucose 111 H OUTPATIENT ANTIDIABETIC REGIMEN: * Humalog insulin pump: total daily dose ~60 units/day ASSESSMENT: * 67 y/o M admitted for DKA yesterday. Patient has history of Type 1 diabetes managed at home on Humalog insulin pump. Patient had site issues and his pump was not working for him. * He was started on fluids and IV insulin drip last night. Drip rate started at 8.5 units/hr and slowly trended down to 1.5 units/hr this morning with BSGs falling below goal range. * Anion gap was closed, insulin drip discontinued this morning. IV fluids ch anged to eliminate dextrose. * Based off of diabetes provider notes in 07/2022, patient's insulin pump should have provided total daily dose of 60 units. Therefore, 50% of this dose, that is 30 units, was given as basal Lantus this morning. Over the past 12 hrs, insulin drip was also averaging around 60 units. * Novolog was started this AM with correction and carb ratio based on stress of 2, but since patient was not eating, this was not given. Diet resumed today. * Pre-lunch BSG = 231 mg/dl. Lab BSG check ~noon was 310 mg/dl but confirmed with nurse that patient was eating when lab took this sample. * Novolog parameters tightened slightly at lunch. PLAN FOR INPATIENT GLYCEMIC CONTROL: * Hold outpatient oral diabetes medications * Basal insulin * Lantus 30 units x1 SQ today AM * Bolus insulin * NovoLog per scale ACHS or Q6hrs while NPO * Goal Range: Low 110 mg/dL - High 140 mg/dL * Correction Factor: 20 mg/dL/unit * Nutritional / Prandial insulin per carb ratio of 1 unit per 6 grams CHO consumed
--- NOTE | 2022-11-17 11:51 | XCELERA ---
[id number]
--- NOTE | 2022-11-17 12:18 | Electrocardiogram Report ---
Test Reason : Blood Pressure : / mmHG Vent. Rate : 087 BPM Atrial Rate : 087 BPM P-R Int : 160 ms QRS Dur : 092 ms QT Int : 380 ms P-R-T Axes : 080 077 058 degrees QTc Int : 457 ms Normal sinus rhythm Nondiagnostic inferolateral Q waves Abnormal ECG When compared with ECG of 16-NOV-2022 15:32, No significant change was found Confirmed by Rc Devi ([id number]) on 11/17/2022 12:18:33 PM Referred By: REFERRED SELF Confirmed By:Rc Devi
[2022-11-17 12:39] LABS: BUN Creatinine Ratio 25.7 (10-20); Est GFR (African American) 81.5 ml/min; Est GFR (Non-African American) 70.4 ml/min; Magnesium 1.8 mg/dl (1.7-2.4); Phosphorus 2.2 mg/dl (2.5-4.9); Potassium 4.9 mmol/L (3.5-5.1)
[2022-11-17] MEDS ORDERED: NITROGLYCERIN SL 0.4 MG/TAB TAB ONE (14:59)
--- NOTE | 2022-11-17 15:43 | Cardiology Consultation ---
Date of Consultation November 17, 2022 Assessment & Plan (1) Chest pain: (2) Demand ischemia: (3) Diabetic ketoacidosis: Plan 67-year-old man with type 1 diabetes mellitus but no cardiac history who was admitted with DKA and chest pain, significant troponin elevation but no wall mot ion abnormalities on echocardiogram, benign appearing ECG. Given his decades of diabetes mellitus, likely that he has at least some degree of small vessel coronary artery disease, which in the context of the hemodynamic stress of DKA would likely result in demand ischemia and elevated troponin. Has negative stress echocardiogram is consistent with the absence of occlusive coronary artery disease which would benefit from revascularization. Given similar chest pain symptoms exclusively during prior episodes of DKA and not during physical activity, as well as the absence of ECG changes or echo cardiographic wall motion abnormalities, there is no evidence that he had an acute thrombotic event as an inciting process to his DKA. Would continue aggressive risk factor and medical management with aspirin, high- dose statin, ezetimibe, and continued attention to glucose and blood pressure optimization. No role for SGLT2 inhibitor in type 1 diabetes, since this could increase the risk of diabetic ketoacidosis. Okay for discharge from a cardiac standpoint, although further glucose monitoring and insulin adjustment may be necessary to ensure stability of his labile glucose. History of Present Illness Reason for Consultation: Elevated troponin Requesting Physician: Vee Lazcano MD Attending Physician: Vee Lazcano MD History of Present Illness 67-year-old man with longstanding type 1 diabetes mellitus (on insulin pump), no prior cardiac history, who was admitted 11/16/2022 with DKA, noted to have chest discomfort and marked troponin elevation but no dynamic ECG changes. At baseline, he is able to chop wood and perform other heavy exertional activities without chest discomfort or unusual dyspnea. He notes that during previous episodes of DKA he invariably gets some degree of chest and abdominal discomfort and a profound sense of nausea. He does not note any episodes of chest discomfort outside the context of DKA. His DKA was medically managed in u sual fashion and his metabolic profile has markedly improved. He has had no further chest discomfort since admission. Echocardiogram showed no wall motion abnormalities and he felt well. He proceed ed to a stress echocardiogram and walked for 4 and half minutes on a Jordan protocol, no chest discomfort, minor anterior ECG changes which were transient, no echocardiographic abnormalities. Thus, no evidence of occlusive coronary artery disease. At the time of my evaluation this morning and again this afternoon (during stress echo) he had no somatic complaints. Allergies Allergy/AdvReac Type Severity Reaction Status Date / Time No Known Allergies Allergy Mild Verified 11/16/22 17:48 Home Medications Medication Instructions Recorded Confirmed Type aspirin 81 mg tablet,delayed 81 mg PO HS 07/24/19 11/16/22 History release (Adult Low Dose Aspirin) insulin syringe-needle U-100 0.5 #10 ea 07/24/19 08/05/22 History mL 31 gauge x 5/16" (BD Insulin Syringe Ultra-Fine) Contour Next Test Strips (blood #600 ea 11/19/21 08/05/22 Rx sugar diagnostic) blood-glucose meter,continuous #1 ea 08/29/22 Rx Dexcom G6 Sensor (blood-glucose #9 ea 11/07/22 Rx sensor) Dexcom G6 Transmitter #1 ea 11/07/22 Rx (blood-glucose transmitter) glucagon (human recombinant) 1 mg 1 mg IM .COMPLEX PRN hypoglycemia 11/09/22 11/16/22 Rx solution for injection #1 ea atorvastatin 80 mg tablet 80 mg PO HS 11/16/22 11/16/22 History cholecalciferol (vitamin D3) 50 100 mcg PO HS 11/16/22 11/16/22 History mcg (2,000 unit) capsule (Vitamin D3) ezetimibe 10 mg tablet 10 mg PO HS 11/16/22 11/16/22 History insulin lispro 100 unit/mL 0 unit continuous subcutaneous 11/16/22 11/16/22 History subcutaneous solution (Humalog infusion CONTINOUS U-100 Insulin) lisinopril 40 mg tablet 40 mg PO HS 11/16/22 11/16/22 History Patient History Medical History Diabetic peripheral neuropathy associated with type 1 diabetes mellitus Hypoglycemia unawareness in type 1 diabetes mellitus Loss of protective sensation of skin of foot Surgical History H/O foot surgery Family History Family/Other Colorectal cancer Diabetes Grandfather (Maternal) Myocardial infarction Grandfather (Paternal) Myocardial infarction Grandmother (Paternal) Ovarian cancer Brother Prostate cancer Diabetes Uncle Diabetes Denies family history of Breast cancer Social History Smoking Status: Former smoker Smoking End Date: Nov 1990, smoked 15 years off & on; Second Hand Exposure: No; Hx Alcohol Use: Yes Alcohol type: beer and hard liquor Alcohol Intake Frequency: 2-3 x/Week Hx Substance Use: No Preferred Language: Togolese Communication Ability: Effective Purchasing Analyst Required: No Beliefs That Will Affect Care: None marital status: Current Living Situation: Spouse current occupational status: employed 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 Normotensive BP. Pulse 86 bpm and regular. Skin: no ecchymoses or generalized lesions. HEENT: unremarkable. Neck: no JVD or carotid bruits. Lungs: clear. Cardiac: regular rhythm, normal S1 and S2, no murmur or gallop. Abdomen: benign. Extremities: no edema, pulses intact. Neurologic: normal affect and conversation, nonfocal. Results & Data ([facility]) Vital Signs (Past 12 Hours) Vital Signs Temp Pulse Pulse Resp BP Pulse Ox O2 Del Method 11/17/22 10:58 98.1 F 87 20 126/62 98 Room Air 11/17/22 07:00 73 11/17/22 07:22 97.9 F 72 19 111/62 98 Room Air Laboratory Results Serial troponins 9.2, 45.4, 947.6, 1367.9. Most recent labs with normal electrolytes, BUN 28, creatinine 1.09. Diagnostic Findings Admission ECG showed sinus tachycardia [address] segments and nondiagnostic inferior Q waves which were not new. Compared with 2017 ECG, no significant change. Repeat ECG today showed sinus rhythm at 87 bpm, again with nondiagnostic inferior Q waves, no change. Chest x-ray showed some reticular nodular interstitial thickening. Echocardiogram today showed EF 65 to 70% with normal left ventricular structure and function and no regional wall motion abnormalities. No significant valvular disease. Stress echo showed mild anterior ST depression at peak exertion which resolved within a few minutes of recovery, he had no chest pain, all regalado of the left ventricle augmented appropriately postexercise. PG Care Time/CCT Total # of Minutes Spent Total Time Spent with Patient: Total time spent is greater than 50% in coordination of care (as documented) at patient's floor/unit and/or counseling patient: Coding Level of Care Code INP/OBS CONSULT LVL 4, 60 MIN Diagnoses Chest pain R07.9 Demand ischemia I24.8 Diabetic ketoacidosis E10.10 Diabetes mellitus complication detail: without coma Diabetes mellitus type: type 1 (1) Diabetic ketoacidosis Diabetes mellitus complication detail: without coma Diabetes mellitus type: type 1 Qualified Code(s): E10.10 - Type 1 diabetes mellitus with ketoacidosis without coma
--- NOTE | 2022-11-17 16:03 | XCELERA ---
[id number] \\[id number]
[2022-11-18] MEDS: CARBOHYDRATES FOR HYPOGLYCEMIA PO PRN ×3 (00:31→01:18)
[2022-11-18] MEDS: INSULIN ASPART PER UNIT SC SCH ×3 (00:38→09:12)
[2022-11-18] MEDS: SODIUM CHLOR 0.45% + 20MEQ KCL 20 MEQ/1,000 ML BAG IV SCH (04:37)
[2022-11-18] MEDS: ACETAMINOPHEN 325 MG TAB PO PRN ×2 (05:12→10:13)
--- NOTE | 2022-11-18 07:02 | Progress Note ---
Date of Service November 18, 2022 Assessment & Plan (1) Diabetic ketoacidosis: Diabetes mellitus complication detail: without coma Diabetes mellitus type: type 1 Qualified Code(s): E10.10 - Type 1 diabetes mellitus with ketoacidosis without coma (2) Diabetes type 1, controlled: (3) Chest pain: (4) Leukocytosis: Plan DKA: Secondary to insulin pump malfunctions when moved from one location to another. -Glucose 191 most recently, overnight range of 45-269 -Pharmacy consulted, created and initiated current subq insulin regimen -Continue carb count diet -Spoke w/ inspector plug seam yesterday (11/17/22), and plans to meet again today (11/18/22) to review CGM and discharge plan Chest pain: Likely due to demand ischemia secondary to DKA . -Significant troponin elevation but no wall motion abnormalities on echocardiogram, benign ECG, negative stress echocardiogram -Cardiology consulted, reported no evidence that he had an acute thrombotic event, but would continue aggressive risk factor/medical management with aspirin, high-dose statin, ezetimibe, and continued attention to glucose and blood pressure optimization. He is cleared for discharge from their perspective. Leukocytosis: Likely demargination due to DKA, rather than infection as the cause of DKA. -WBC of 25 upon presentation to ED, repeat CBC pending -Continues to be afebrile. -Continue to monitor for fever and normalization of WBC levels Diabetes type 1: Continued difficulty maintaining glycemic control since , despite patient education and multiple changes to medication and device regimen, follows with Dr. Riley -Last HgA1c was 9.6 in July -Spoke w/ inspector plug seam yesterday (11/17/22), and plans to meet again today (11/18/22) to review CGM Admission and Anticipated Discharge Date Admission Date: November 16, 2022 Subjective This patient is an otherwise healthy 67-year-old male with insulin-dependent T1DM who presented to the [facility] ED yesterday 11/16/2022 feeling ill. In addition to vomiting, diarrhea, and chest pain, he reported a blood sugar of over 400. His insulin pump was replaced 8 months ago and he experiences hyperglycemia every time he switches sites, but he has never been hospitalized for DKA. In the emergency department, he had normal vital signs, mild tachycardia at 118, glucose at 542, pH at 7.14, potassium at 6.0, anion gap at 24, and CO2 at 14. The WBC count was 25. His EKG was normal. There were no signs of peaking T waves, wide MS intervals, or abnormal P waves. DKA protocol was initiated, he was rehydrated and given an insulin drip. He was admitted for continued monitoring. 11/17/2022: He is feeling much better this morning, and does not report chest pain, nausea, vomiting, abdominal pain, diarrhea, lethargy, dyspnea, or wea kness. He slept 'as well as can be expected' last night and is glad his glucose is normalizing. His brother suddenly this past September due to a heart attack, and so, considering his recent chest pain, he is concerned he may have heart problems like his brother did. He endorses a mild headache that is unchanged since he came to the ED initially. He has an appetite and would like something to eat as soon as possible. 11/18/2022: The patient was awake and eating breakfast when seen this morning. He does not have any nausea, has not vomited, has a good appetite and has finished all of his meals thus far, and is looking forward to discharge today. He did have a headache overnight which was relieved by Tylenol and continues to have a mild headache this morning. His is bringing in his CGM from home at ~ 1030 today, and will meet with the inspector plug seam (Mariza) to collaborate on at- home glycemic control. Physical Exam Constitutional: healthy appearing, well groomed, cooperative and comfortable; no acute distress Eyes: normal visual archuleta by confrontation, + anicteric sclerae, PERRL, normal accommodation, EOM intact bilaterally and reactive pupils ENMT: external ear and nose normal, oropharynx normal Neck: normal visual inspection and trachea midline Thyroid: no thyromegaly Respiratory: normal respiratory effort, able to speak in complete sentences and symmetric chest movement; no respiratory distress, no labored breathing, does not use accessory muscles, not tachypneic and no audible wheezes Auscultation: lungs clear to auscultation bilaterally; no crackles, no rales, no rhonchi and no wheezes Cardiovascular: Rate/Rhythm: regular rate and regular rhythm Heart Sounds: normal S1 and normal S2; no gallop, no murmur and no cardiac rub Skin: no rashes, warm and dry Psychiatric: Orientation: alert, oriented x 3 and cooperative Eye Contact: good eye contact Speech: normal rate/rhythm/volume of speech Affect: euthymic affect Thought Process: linear/logical thought process Lymphatic: no cervical lymphadenopathy Results & Data ([facility]) Vital Signs (Past 12 Hours) Vital Signs Temp Pulse Resp BP Pulse Ox O2 Del Method 11/18/22 04:32 36.8 C 68 18 160/67 H 97 Room Air 11/17/22 23:32 36.8 C 57 L 18 125/66 96 Room Air 11/17/22 19:46 37.0 C 65 18 123/64 98 Room Air
[2022-11-18 08:16] LABS: Basophils # (auto) 0.06 K/uL (0-0.2); Basophils % (auto) 0.4 %; Eosinophils # (auto) 0.05 K/uL (0-0.50); Eosinophils % (auto) 0.4 %; Hematocrit (blood only) 35.7 % (42.0-52.0); Immature Granulocytes # (auto) 0.05 K/uL (0.01-0.20); Immature Granulocytes % (auto) 0.4 %; Lymphocytes # (auto) 3.83 K/uL (1.2-3.4); Lymphocytes % (auto) 28.3 %; Mean Corpuscular Hemoglobin 30.8 pg (25.0-34.0); Mean Corpuscular Hgb Conc 33.6 g/dL (32.0-36.0); Mean Corpuscular Volume 91.8 fL (80.0-100.0); Mean Platelet Volume 9.8 fL (9.4-12.4); Monocytes # (auto) 0.63 K/uL (0.11-0.59); Monocytes % (auto) 4.7 %; Neutrophils # (auto) 8.89 K/uL (1.40-6.50); Neutrophils % (auto) 65.8 %; Platelet Count 167 K/uL (130-400); RDW Coefficient of Variation 13.2 % (11.5-14.5); RDW Standard Deviation 44.5 fL (36.4-46.3); Red Blood Count 3.89 M/uL (4.70-6.10); White Blood Count 13.51 K/ul (4.8-10.8)
[2022-11-18 08:46] LABS: BUN Creatinine Ratio 20.6 (10-20); Calcium 8.1 mg/dl (8.5-10.1); Est GFR (African American) 88.4 ml/min; Est GFR (Non-African American) 76.2 ml/min; Magnesium 1.9 mg/dl (1.7-2.4); Potassium 4.6 mmol/L (3.5-5.1)
[2022-11-18] MEDS ORDERED: LANTUS PER UNIT CHARGE SQ SCH (09:00)
--- NOTE | 2022-11-18 09:22 | Discharge Summary ---
Date of Service November 18, 2022 Admission HPI Per Admitting Provider Ilan Holden is a 67-year-old male with type 1 diabetes who presents to the ER with hyperglycemia in the 400s, chest pain, vomiting and generalized weakness. He reports never being admitted for diabetic ketoacidosis in 34 years and usually has more of a problem with lack of hypoglycemic awareness. He has had a new pump since March and reports having hyperglycemia whenever he changes sites. He was feeling mostly his normal self yesterday although a little bit more tired than usual. No infection signs or symptoms. During the night he was having trouble with high glucose levels and has been from experience that this may be due to a poor site of his insulin pump therefore changed this out to 2-3 times without improvement in his glucose. He does have injectable insulin although did not use on this occasion. He vomited green bile 10 times and had diarrhea 10 times following this. He denies any abdominal pain. He reports chest pain which he associates with the vomiting, no worse on palpation or exertion, not currently present. His usual basal rates of insulin is 1.05 units/h from 12 AM to 12 PM then 1.3 units/h from 12 PM to 12 AM (total 28.2 units). He reports usually requiring a total of 60 units insulin per day. In the ER he was noted to be in diabetic ketoacidosis with glucose level 542, bicarb 14, anion gap 24, ABG pH 7.14. He was given 2 L normal saline bolus, 10 units of IV insulin and started on an insulin drip. He was referred to medicine for admission ongoing management of diabetic ketoacidosis. Admission Exam (Per Admitting) Constitutional well developed and well nourished; no acute distress Eyes PERRL, conjunctivae normal, anicteric sclerae ENMT Mouth: + dry oral mucous membranes Respiratory normal respiratory effort, able to speak in complete sentences and symmetric chest movement; not tachypneic Auscultation: lungs clear to auscultation bilaterally Cardiovascular Rate/Rhythm: regular rate and regular rhythm Heart Sounds: normal S1 and normal S2 Extremities: normal capillary refill; no calf tenderness and no pedal edema Skin no rashes, warm and dry Neurologic moves all extremities and awake; not confused Psychiatric Orientation: alert, oriented x 3, oriented to person, oriented to place and oriented to time Affect: euthymic affect Constitutional well developed and well nourished; no acute distress Eyes PERRL, conjunctivae normal, anicteric sclerae ENMT Mouth: + dry oral mucous membranes Respiratory normal respiratory effort, able to speak in complete sentences and symmetric chest movement; not tachypneic Auscultation: lungs clear to auscultation bilaterally Cardiovascular Rate/Rhythm: regular rate and regular rhythm Heart Sounds: normal S1 and normal S2 Extremities: normal capillary refill; no calf tenderness and no pedal edema Skin no rashes, warm and dry Neurologic moves all extremities and awake; not confused Psychiatric Orientation: alert, oriented x 3, oriented to person, oriented to place and oriented to time Affect: euthymic affect Discharge Data Consultations 11/17/22 06:49 Consult Cardiology Routine Hospital Course (1) Diabetic ketoacidosis: Ilan Holden is a 67 year old male with chronic T1DM who was admitted to [facility] [place] on 11/15/22 to 11/18/22 with DKA. He presented with BSG > 400, chest pain, vomiting, and generalized weakness. IV insulin, potassium, and IV fluids were administered, anion gap closed, BSG improved to < 250, and other symptoms resolved within < 24 hours. It is very likely that his DKA was caused by insulin pump cannula malfunction. In addition, he was experiencing chest pain with vomiting, not initially concerning cardiac cause, however he did have an increase in high sensitivity troponin up to 1370. Chest pain resolved with resolution of vomiting. Cardiology was consulted and the patient underwent a negative stress test without any abnormalities on TTE. Elevated troponin likely due to demand ischemia in the setting of DKA. Cardiology recommended that he should maintain aggressive risk factor/medical management, including aspirin, high-dose statins, ezetimibe, and glucose and blood pressure optimization. Patient was transitioned to subcutaneous insulin and did well with this overall. Pharmacy was consulted, as well as agricultural extension educator. Patient was given education about CGM and his insulin pump. He was discharged on 11/18/22 in good condition. He will follow up with [facility] for Family Medicine and Dr. Riley, his surgery aid. (2) Diabetes type 1, controlled: (3) Chest pain: (4) Leukocytosis: (5) Demand ischemia: Supervising Physician Co-Signing Physician Notes Medical Student Supervision Note: I was personally present during medical student patient encounter and independently interviewed and examined the patient and verified the blackwell history and physical, reviewed labs and image studies, discussed the case with Rebecca Last and agree with the findings and care plan. 67y/o M with h/o type 1 DM here with DKA likely from underlying uncontrolled DM. Also noted to have elevated troponin in the ED No chest pain, shortness of breath, abdominal pain, nausea o/e - No distress Heart - regular; lungs - CTA, Abd - soft; nt/nd, bs present. DKA - Treated with IV insulin drip until closure of Anion gap. Insulin drip transitioned to SQ insulin. Electrolytes stable Underwent extensive diabetic coaching while hospitalized and CGM use considering uncontrolled DM. Type 2 [place] - Underwent cardiology evaluation. Echocardiogram and stress echo came back normal. Outpatient f/u with pcp.
[2022-11-18] MEDS: FAMOTIDINE 20 MG in SYRINGE 3 ML IV SCH (09:24)
[2022-11-18 09:29] LABS: Estimated Average Glucose 232 mg/dl; Hemoglobin A1C 9.7 % (4.5-5.6)
[2022-11-18] MEDS: ENOXAPARIN INJ 40 MG/0.4 ML SYR SQ SCH (09:43)
--- NOTE | 2022-11-18 10:31 | Pharmacy Report ---
Pharmacy Glycemic Short Note 2 - Date of Service November 18, 2022 - Glycemic Short BSG Results (Last 24 hours): 11/17/22 11/17/22 11/17/22 11:43 11:52 16:53 Glucose 310 H* POC Glucose 231 H 288 H 11/17/22 11/18/22 11/18/22 19:49 00:18 00:20 Glucose POC Glucose 182 H 48 L* 49 L* 11/18/22 11/18/22 11/18/22 00:47 01:12 01:37 Glucose POC Glucose 45 L* 61 L* 131 H 11/18/22 11/18/22 11/18/22 04:06 07:50 07:51 Glucose 220 H POC Glucose 269 H 191 H OUTPATIENT ANTIDIABETIC REGIMEN: * Humalog insulin pump: total daily dose ~60 units/day ASSESSMENT: 11/18/22: * Post prandial BSGs were elevated yesterday which caused patient to get 14 units of Novolog for lunch and 15 units for dinner which then caused BSG to drop to 48 mg/dl around midnight. * Fasting BSG today was elevated at 191 mg/dl. Lower dose of Lantus (decreased by 30%) ordered for this morning. * Novolog CF and CR tightened with breakfast since post prandial sugars were high but parameters then loosened for lunch, dinner and bedtime to prevent insulin stacking and hypoglycemia late in the night. 11/17/22: * 67 y/o M admitted for DKA yesterday. Patient has history of Type 1 diabetes managed at home on Humalog insulin pump. Patient had site issues and his pump was not working for him. * He was started on fluids and IV insulin drip last night. Drip rate started at 8.5 units/hr and slowly trended down to 1.5 units/hr this morning with BSGs falling below goal range. * Anion gap was closed, insulin drip discontinued this morning. IV fluids changed to eliminate dextrose. * Based off of diabetes provider notes in 07/2022, patient's insulin pump should have provided total daily dose of 60 units. Therefore, 50% of this dose, that is 30 units, was given as basal Lantus this morning. Over the past 12 hrs, insulin drip was also averaging around 60 units. * Novolog was started this AM with correction and carb ratio based on stress of 2, but since patient was not eating, this was not given. Diet resumed today. * Pre-lunch BSG = 231 mg/dl. Lab BSG check ~noon was 310 mg/dl but confirmed with nurse that patient was eating when lab took this sample. * Novolog parameters tightened slightly at lunch. PLAN FOR INPATIENT GLYCEMIC CONTROL: * Basal insulin * Lantus 20 units SQ QAM * Bolus insulin: CF/CR tightened with breakfast and loosened for lunch, dinner and HS * NovoLog per scale ACHS or Q6hrs while NPO * Goal Range: Low 110 mg/dL - High 140 mg/dL * Correction Factor: 20 mg/dL/unit for breakfast and 30 mg/dl/unit with lunch, dinner, HS * Nutritional / Prandial insulin per carb ratio of 1 unit per 6 grams CHO consumed for breakfast and 1:10 for lunch, dinner and HS
--- NOTE | 2022-11-18 11:17 | Cardiology Progress Note ---
Date of Service November 18, 2022 Assessment & Plan (1) Chest pain: (2) Demand ischemia: (3) Diabetic ketoacidosis: Plan Patient doing well clinically and hemodynamics are reasonable. Stress study yesterday negative for inducible myocardial ischemia. Continue management of vascular risk factors. No change in his cardiac regimen of aspirin, atorvastatin, ezetimibe. No routine cardiology follow-up necessary at this point given absence of evidence for occlusive coronary artery disease. Admission and Anticipated Discharge Date Admission Date: November 16, 2022 Subjective No further chest pain. Glucose still somewhat labile. At the time of my evaluation, no somatic complaints. Telemetry showed sinus rhythm in the 60-80 bpm range. Physical Exam Physical Exam: No distress. Normotensive BP. Pulse 64 bpm and regular. Skin: no ecchymoses or generalized lesions. HEENT: unremarkable. Neck: no JVD or carotid bruits. Lungs: clear. Cardiac: regular rhythm, normal S1 and S2, no murmur or gallop. Abdomen: benign. Extremities: no edema, pulses intact. Neurologic: normal affect and conversation, nonfocal. Results & Data ([facility]) Vital Signs (Past 12 Hours) Vital Signs Temp Pulse Pulse Resp BP Pulse Ox O2 Del Method 11/18/22 08:10 98.1 F 64 17 155/77 H 97 Room Air 11/18/22 07:00 66 11/18/22 04:32 98.2 F 68 18 160/67 H 97 Room Air 11/17/22 23:32 98.2 F 57 L 18 125/66 96 Room Air Laboratory Results Normal electrolytes, BUN 21, creatinine 1.02. PG Care Time/CCT Total # of Minutes Spent Total Time Spent with Patient: Total time spent is greater than 50% in coordination of care (as documented) at patient's floor/unit and/or counseling patient: Coding Level of Care Code 38411 SUB INP/OBS CARE 1/25MIN Diagnoses Chest pain R07.9 Demand ischemia I24.8 Diabetic ketoacidosis E10.10 Diabetes mellitus complication detail: without coma Diabetes mellitus type: type 1 (1) Diabetic ketoacidosis Diabetes mellitus complication detail: without coma Diabetes mellitus type: type 1 Qualified Code(s): E10.10 - Type 1 diabetes mellitus with ketoacidosis without coma
[2022-11-18] MEDS ORDERED: INSULIN ASPART PER UNIT SC SCH (11:30)
[2022-11-19] MEDS ORDERED: INSULIN ASPART PER UNIT SC SCH (07:30)
== END 2022-11-18 14:55 | disposition home or self-care (01) | DRG 637 ==
LOC: ED 14:57 → 4W 18:55 → SUATTDRO 18:55 → 4W 22:07